=== PATIENT | male | born 1940 | race Caucasian/White ===

== ENCOUNTER 2018-09-27 20:16 | Emergency (ER) | payer MEDICARE ==
[2018-09-27] MEDS ORDERED: Albuterol/Ipratropium NEB.SOL* Albuterol 2.5 MG/Ipratropium 0.5 MG 3 ML INH ONE ×2 (20:22→21:00)
--- NOTE | 2018-09-27 20:39 | UC ---
Shortness of Breath HPI - HPI Summary HPI Summary: C/O SOB with cough since 08/24/18. H/O COPD - History of Current Complaint Stated Complaint: TROUBLE BREATHING Time Seen by Provider: 09/27/18 20:21 Hx Obtained From: Patient Onset/Duration: Sudden Onset, Lasting Days - 4, Worse Since - onset Timing: Constant Current Severity: Severe Dyspnea At: Rest Aggrevating Factors: Movement Alleviating Factors: Nothing Associated Signs & Symptoms: Positive: Cough (Nonproductive), Wheezing, Nasal Congestion. Negative: Fever, Calf Pain/Swelling, Edema - Risk Factors Pulmonary Embolism: Smoking - Allergy/Home Medications Allergies/Adverse Reactions: Allergies Allergy/AdvReac Type Severity Reaction Status Date / Time duloxetine Allergy Intermediate Altered Verified 09/27/18 20:38 Mental Status celecoxib [From Celebrex] Allergy Mild Rash Verified 09/27/18 20:38 Iodine and Iodide Containing Allergy Unknown Unknown Verified 09/27/18 20:38 Produc Reaction Details Home Medications: Home Medications Ibuprofen 200 mg PO 09/27/18 [History] Rivaroxaban TAB(*) [Xarelto 20 mg] 09/27/18 [History] Tizanidine HCl 4 mg PO 09/27/18 [History] PMH/Surg Hx/FS Hx/Imm Hx Respiratory History: COPD - Surgical History Surgical History: Yes Surgery Procedure, Year, and Place: prostate 12 2003 yrs ago,. broken collarbones. RIGHT GREAT TOE, 1987, [facility]. LEFT KNEE FROM SAW INJURY, 1960S. LEFT ROTATOR CUFF REPAIR - Family History Known Family History: Positive: Respiratory Disease - Social History Occupation: Retired Lives: Alone Alcohol Use: None Alcohol Amount: SOBER FOR 9 MONTHS Substance Use Type: None Type: Cigarettes Amount Used/How Often: PACK A DAY Have You Smoked in the Last Year: Yes Cessation Counseling: Patient Advised to Stop Review of Systems All Other Systems Reviewed And Are Negative: Yes Constitutional: Positive: Fatigue ENT: Positive: Nasal Discharge Respiratory: Positive: Shortness Of Breath, Cough Is Patient Immunocompromised?: No Physical Exam Triage Information Reviewed: Yes Appearance: Ill-Appearing - with SOB Vital Signs Reviewed: Yes ENT: Positive: Pharynx normal, TMs normal Respiratory: Positive: Respiratory distress, Accessory muscle use, Wheezing - diffuse inspiratory and expiratory wheezes Cardiovascular: Positive: No Murmur, Distal Pulses Weak - with pulsus paradoxus Musculoskeletal Exam: Normal Neurological Exam: Normal Psychological Exam: Normal Skin Exam: Normal Shortness of Breath Dx - Course Course Of Treatment: Initial O2 sat on RA 74%. Ok on 2l NC. - Differential Dx/Diagnosis Differential Diagnosis/HQI/PQRI: CHF, COPD Exacerbation, Pneumonia Provider Diagnosis: COPD with acute exacerbation - Physician Notification/Consults Discussed Patient Care With: Luis Enrique Merrill - will send to ER via ambulance Time Discussed With Above Provider: 21:04 Instructed by Provider To: Transfer - to [facility] [place] [facility] Discharge - Sign-Out/Discharge Documenting (check all that apply): Patient Departure All imaging exams completed and their final reports reviewed: No Studies - Discharge Plan Condition: Fair Disposition: TRANS HIGHER LVL OF CARE FAC Patient Education Materials: COPD (Chronic Obstructive Pulmonary Disease) (ED) Referrals: Mango Infante MD [Primary Care Provider] - - Billing Disposition and Condition Condition: FAIR Disposition: Trans Higher Lvl of Care Fac
[2018-09-27 21:19] VITALS: BP 104/81
== END 2018-09-27 21:42 | disposition short-term general hospital (02) ==
LOC: UCEAST 20:16
DX: J44.1 Chronic obstructive pulmonary disease with (acute) exacerbation (principal); Z88.8 Allergy status to other drugs, medicaments and biological substances; Z91.09 Other allergy status, other than to drugs and biological substances
CPT/HCPCS: 99214; A9270-GY; G0463

== ENCOUNTER 2018-09-27 22:05 | Emergency (ER) | payer MEDICARE ==
[2018-09-27] MEDS ORDERED: methylPREDNISolone 125 MG* 2 ML VIAL IV ONE (22:09)
[2018-09-27] MEDS ORDERED: Albuterol 0.5% CONC NEB.SOL* 5 MG/ML 20 ml BOT INH ONE (22:09)
[2018-09-27] MEDS ORDERED: Diltiazem IV* 5 MG/ML 5 ML VIAL (for loading dose/IV Push) (25 MG) ONE (22:14)
--- NOTE | 2018-09-27 22:17 | ED ---
Shortness of Breath - HPI Summary HPI Summary: A 77 y/o male brought in by [facility] presents to [facility] with a chief complaint of SOB for the past three days. He has a Hx of COPD. Per EMS, 2 duoneb and adenosine were given en route. At triage he rated his pain as a 0/10 in severity. The patient is a smoker. - History of Current Complaint Chief Complaint: EDShortnessOfBreath Hx Obtained From: EMS Onset/Duration: Sudden Onset, Lasting Days, Still Present Timing: Constant Current Severity: Moderate Dyspnea At: Rest Aggrevating Factors: Nothing Alleviating Factors: Nothing Associated Signs & Symptoms: Negative - fever - Allergy/Home Medications Allergies/Adverse Reactions: Allergies Allergy/AdvReac Type Severity Reaction Status Date / Time duloxetine Allergy Intermediate Altered Verified 09/27/18 20:38 Mental Status celecoxib [From Celebrex] Allergy Mild Rash Verified 09/27/18 20:38 Iodine and Iodide Containing Allergy Unknown Unknown Verified 09/27/18 20:38 Produc Reaction Details Home Medications: Home Medications Amitriptyline TAB* [Elavil TAB*] 1 tab PO QPM 09/27/18 [History Confirmed ] PMH/Surg Hx/FS Hx/Imm Hx Endocrine/Hematology History: Denies: Hx Diabetes Cardiovascular History: Reports: Hx Hypercholesterolemia Denies: Hx Congestive Heart Failure, Hx Hypertension, Hx Pacemaker/ICD, Other Cardiovascular Problems/Disorders Respiratory History: Reports: Hx Asthma GI History: Reports: Other GI Disorders - PANCREATITIS History: Reports: Other Problems/Disorders - prostrate and bladder ca Musculoskeletal History: Reports: Hx Arthritis - OSTEOARTHRITIS, Other Musculoskeletal History - osteoathrosis Sensory History: Reports: Hx Cataracts - DEEPAK, Hx Contacts or Glasses - READING GLASSES Denies: Hx Hearing Aid Opthamlomology History: Reports: Hx Cataracts - DEEPAK, Hx Contacts or Glasses - READING GLASSES Neurological History: Denies: Other Neuro Impairments/Disorders Psychiatric History: Denies: Hx Panic Disorder - Cancer History Cancer Type, Location and Year: PROSTATE CA DX 2003,BLADDER CA 2003 NO RADIATION ,NO CHEMO - Surgical History Surgery Procedure, Year, and Place: prostate 12 2004 yrs ago,. broken collarbones. RIGHT GREAT TOE, 1987, [facility] [place]. LEFT KNEE FROM SAW INJURY, . LEFT ROTATOR CUFF REPAIR Hx Anesthesia Reactions: No Infectious Disease History: No Infectious Disease History: Denies: Traveled Outside the [place] in Last 30 Days - Family History Known Family History: Positive: Respiratory Disease - Social History Alcohol Use: None Alcohol Amount: SOBER FOR 9 MONTHS Substance Use Type: Reports: None Smoking Status (MU): Heavy Every Day Tobacco Smoker Type: Cigarettes Amount Used/How Often: PACK A DAY Length of Time of Smoking/Using Tobacco: py has not smoked for three days Have You Smoked in the Last Year: Yes Review of Systems Negative: Fever Positive: Shortness Of Breath All Other Systems Reviewed And Are Negative: Yes Physical Exam - Summary Physical Exam Summary: Appearance: Elderly male in obvious moderate respiratory distress. Skin: Warm, dry, no obvious rash Eyes: sclera anicteric, no conjunctival pallor ENT: mucous membranes moist, pharynx appears normal Neck: Supple, nontender Respiratory: Markedly diminished aeration, prolonged expiratory phase, tachypnea and belly breathing. Cardiovascular: HR markedly elevated. Normal S1, S2. No murmurs. Normal distal pulses in tibial and radial bilaterally. Abdomen: Soft, nontender, normal active bowel sounds present Musculoskeletal: Normal, Strength/ROM Intact Neurological: A&Ox3, awake and alert, mentation is normal, speech is fluent and appropriate Psychiatric: affect is normal, does not appear anxious or depressed Triage Information Reviewed: Yes Vital Signs On Initial Exam: Initial Vitals Temp Pulse Resp BP Pulse Ox 98.8 F 208 27 0/0 96 09/27/18 22:07 09/27/18 22:07 09/27/18 22:07 09/27/18 22:07 09/27/18 22:07 Vital Signs Reviewed: Yes Diagnostics - Vital Signs Vital Signs Temp Pulse Resp BP Pulse Ox 09/27/18 22:07 98.8 F 208 27 0/0 96 - Laboratory Result Diagrams: 09/27/18 20:14 09/27/18 22:57 Lab Statement: Any lab studies that have been ordered have been reviewed, and results considered in the medical decision making process. - Radiology CXR Radiology Interpretation Completed By: ED Physician Summary of Radiographic Findings: no acute process. Pending official imaging report. - EKG 22:12 Cardiac Rate: Other Rate - Atrial fibrillation at 189 bpm EKG Rhythm: Atrial Fibrillation Summary of EKG Findings: Atrial fibrillation at 189 bpm with rapid v-rate. repolarization abnormality, probably rate related. Re-Evaluation - Re-Evaluation First Eval Change: Improved - The pt's HR is trending lower but is still running around 130 -150. He still has significant wheezing but in terms of work of breathing he is doing well, still alert, not agitated at all, does not appear very labored. He does not need endotracheal intubation at present but will need an ICU bed and we do not have an available bed here. Will begin looking for a hospital to transfer to. Course/Dx - Course Course Of Treatment: A 77 y/o male brought in by [facility] ambulance presents to [facility] with a chief complaint of SOB for the past three days. He has a Hx of COPD. Per EMS, 2 duoneb and adenosine were given en route. The physical exam revealed that the patient was an elderly male in obvious moderate respiratory distress and had markedly diminished aeration, prolonged expiratory phase, tachypnea and belly breathing.Bloodwork and chemistries obtained. Lactic acid of 3.4 and troponin of 0.04 at 20:14. EKG at 22:12 showed Atrial fibrillation at 189 bpm with rapid v-rate. repolarization abnormality, probably rate related. CXR showed no acute process. In the ED course the patient was given Albuterol INH, Diltiazem IV, and Solu-Medrol IV. Because there are no current beds available at the ICU, discussed case with Dr. Antonio at [facility], who accepted the patient for transfer. - Diagnoses Provider Diagnoses: COPD exacerbation, Respiratory distress, Atrial fibrillation with rapid ventricular response Discharge - Sign-Out/Discharge Documenting (check all that apply): Patient Departure - transfer Patient Received Moderate/Deep Sedation with Procedure: No - Discharge Plan Condition: Critical Disposition: TRANS HIGHER LVL OF CARE FAC Referrals: Mango Infante MD [Primary Care Provider] - - Billing Disposition and Condition Condition: CRITICAL Disposition: Trans Higher Lvl of Care Fac - Attestation Statements Document Initiated by Edna: Yes Documenting Scribe: Lincoln Denny Provider For Whom Edna is Documenting (Include Credential): Nikhil Gomes MD Scribana Attestation: Lincoln Brar scribed for Nikhil Gomes MD on 09/28/18 at 0052. Scribe Documentation Reviewed: Yes Provider Attestation: The documentation as recorded by the Lincoln galo accurately reflects the service I personally performed and the decisions made by me, Nikhil Gomes MD Status of Scribe Document: Viewed Consult Consult: At 23:59 Discussed case with transfer center. At 00:[address] Antonio at [facility], who accepted the patient for transfer.
[2018-09-27] MEDS ORDERED: Diltiazem IV* 5 MG/ML 5 ML VIAL (for loading dose/IV Push) (25 MG) IV SLOW PU ONE ×2 (22:20→22:35)
[2018-09-27 22:23] LABS: ABS Basophils 0 10^3/ul (0-0.2); ABS Eosinophils 0 10^3/ul (0-0.6); ABS Lymphocytes 2.4 10^3/ul (1.0-4.8); ABS Monocytes 1.2 10^3/ul (0-0.8); ABS Neutrophils 6.5 10^3/ul (1.5-7.7); ABS Nucleated RBC 0 10^3/ul; Eosinophil % 0.1 %; Hematocrit 46 % (36-46); Hemoglobin 15.7 g/dL (14.0-18.0); Lymphocyte % 23.8 %; Mean Corpuscular HGB Conc 34 g/dL (31-36); Mean Corpuscular Hemoglobin 32 pg (27-31); Mean Corpuscular Volume 94 fL (80-94); Nucleated Red Blood Cells % 0.1; Platelet Count 167 10^3/uL (150-450); Red Blood Count 4.95 10^6 /uL (4.18-5.48); Red Cell Distribution Width 14 % (10.5-15); White Blood Count 10.3 10^3/uL (3.5-10.8)
[2018-09-27] MEDS ORDERED: Diltiazem IV VIAL* 125 MG in NS 0.9% 100 ML* 100 ML IVPB ONE ×2 (22:25→23:14)
[2018-09-27 22:39] LABS: ALT 23 U/L (7-52); Albumin/Globulin Ratio 1.1 (1-3); Alkaline Phosphatase 61 U/L (34-104); BUN/Creatinine Ratio 24.5 (8-20); Blood Urea Nitrogen 35 mg/dL (6-24); CO2 Carbon Dioxide 21 mmol/L (22-32); Calcium 8.8 mg/dL (8.6-10.3); Chloride 105 mmol/L (101-111); Globulin 3.6 g/dL (2-4); Glucose 129 mg/dL (70-100); Sodium 138 mmol/L (135-145); Total Protein 7.6 g/dL (6.4-8.9)
[2018-09-27 22:40] LABS: Anion Gap 12 mmol/L (2-11)
[2018-09-27 23:02] LABS: Troponin I 0.04 ng/mL (<0.04)
[2018-09-27 23:18] LABS: Potassium Redraw 3.6 mmol/L (3.5-5.0)
[2018-09-28 01:00] VITALS: BP 98/73
[2018-09-28] MEDS ORDERED: Albuterol 2.5 MG/3 ML NEB.SOL* (0.083%) INH ONE ×2 (01:19→01:21)
== END 2018-09-28 01:40 | disposition short-term general hospital (02) ==
LOC: ED 22:05
DX: J44.9 Chronic obstructive pulmonary disease, unspecified (principal); R06.02 Shortness of breath; I48.91 Unspecified atrial fibrillation; Z88.8 Allergy status to other drugs, medicaments and biological substances; F17.210 Nicotine dependence, cigarettes, uncomplicated
CPT/HCPCS: 36415; 71045; 80053; 83605; 84484; 85025; 87040; 93005; 96365; 96375; 99285; J2930

== ENCOUNTER 2018-10-15 13:14 | Inpatient (IN) | payer MEDICARE ==
--- OUTSIDE RECORDS SUMMARY | 2018-10-15 13:36 | XMS REPORT | Continuity of Care Document ---
:1940 External Reference #:[id number] Author Name LiliaStefano appleidi Care Team Providers Name Role Phone Erma Darnell MD Primary Care Physician Unavailable Payers Date Identification Numbers Payment Provider Subscriber Effective: 2012 Policy Number: [id number] Medicare Blue Ppo [employer] PayID: [id number] [address] [address] [place] [address] Expires: 2012 Policy Number: [id number] Medicare Blue Ppo [employer] PayID: [id number] [address] [address] [place] [address] Effective: 2000 Policy Number: [id number] Medicare Kvng Casillas Expires: 2000 PayID: [id number] [address] [place] [address] Advance Directives Description No Information Available Problems Active Problems Provider Date Paroxysmal atrial fibrillation Mango Infante M.D.,FACP Onset: 11/12/2017 Chronic alcoholism in remission Mango Infante M.D.,FACP Onset: 2006 Chronic obstructive lung disease Mango Infante M.D.,FACP Onset: 2006 Osteoarthritis Mango Infante M.D.,FACP Onset: 05/27/2007 Tobacco user Mango Infante M.D.,FACP Onset: 05/27/2007 Mixed hyperlipidemia Mango Infante M.D.,FACP Onset: 07/09/2007 Recurrent major depressive episodes Mango Infante M.D.,FACP Onset: 07/09 History of malignant neoplasm of Mango Infante M.D.,FACP Onset: 2011 prostate Diagnostic dye allergy Mango Infante M.D.,FACP Onset: 01/29/2013 Chronic pancreatitis Montserrat Azul, N.P. Onset: 07/10/2013 Anemia Mango Infante M.D.,FACP Onset: 06/26/2018 Inactive Problems Malaise and fatigue Mango Infante M.D.,FACP Onset: 04/21/2009 Inactive: 12/02/2013 Nondependent alcohol abuse, continuous Mango Infante M.D.,FACP Onset: Inactive: 12/02/2013 Multiple atrial premature complexes Mango Infante M.D.,FACP Onset: 12/02 Inactive: 11/12/2017 Family History Date Family Member(s) Observation Comments General Cancer General Rheumatoid Arthritis : (age 89 Years) Mother due to Unknown Causes Siblings 2 none now First Sister Cancer, Colon First Sister due to Cancer, Colon () Second Sister Chronic pain. Second Sister Brain Cancer Social History Type Date Description Comments Sex Unknown Marital Status Lives With Alone Occupation Disabled Tobacco Use Start: Unknown Current Cigarette Smoker 1 Pack Daily ETOH Use 02/18/2018 Has consumed alcohol in the past abuse ETOH Use 02/01/2014 Denies alcohol use Recreational Drug Use Denies Drug Use Tobacco Use Start: Unknown Patient is a current smoker, smokes every day Tobacco Use Start: Unknown 1 ppd x 60 yrs Smoking Status Reviewed: 10/14/18 1 ppd x 60 yrs Exercise Type/Frequency Does not exercise Allergies, Adverse Reactions, Alerts Active Allergies Reaction Severity Comments Date Celebrex rash 05/27/2007 Cymbalta delirium 01/13/2010 Iodinated Contrast Media per [facility] 01/17/2010 Sulfa Antibiotics 11/26/2013 Iodine 11/26/2013 Medications Active Medications SIG Qnty Indications Ordering Date Provider Omeprazole 1 by mouth once 30caps K62.5 Juan David Barragan NP 10/14/2018 20mg daily Capsules Amitriptyline HCL 1 by mouth in 90tabs Mango Ferreira 02/18/2018 evening Nicole Infante,FACP 10mg Tablets Shingrix 0.5 milliliters 2units Mango Ferreira 02/18/2018 50mcg intramuscular now Nicole Infante,FACP Suspension Rec and 2-3 months later repeat Xarelto 1 by mouth every day 90tabs I48.91 Mango Ferreira 10/15/2017 20mg Tablets Nicole Infante,FACP Nicotine Step 1 Unknown 21mg/24HR Patches 24HR Diltiazem HCL 1 by mouth twice a Unknown 60mg day Tablets Metoprolol Tartrate daily - on hold as Unknown of 10/09/18 25mg Tablets Digox Unknown 125mcg Tablets Ipratropium Unknown Ulysses/Albuterol Sulfate 0.5-2.5(3)mg/3ML Solution History Medications Tizanidine HCL 1 tab every day 20caps Mango Ferreira 11/12/2017 - 4mg as needed Nicole Infante,FACP 02/18/2018 Capsules Amitriptyline HCL 1 by mouth in 30tabs Mango Ferreira 10/15/2017 - 10mg evening Nicole Infante,FACP 02/18/2018 Tablets Diltiazem HCL ER 1 po qd 90caps Mango Ferreira 10/15/2017 - 120mg Nicole Infante,FACP 02/18/2018 Caps ER 12HR Fluticasone 2 sprays each 16gm Dejon Robledo NP 08/10/2015 - Propionate nostril daily as 10/05/2015 50mcg/Act needed Suspension No Active Medications Unknown 12/17/2013 - 02/01/2014 No Active Medications Unknown 11/26/2013 - 11/26/2013 Percocet take 1-2 pills 90tabs Keyana Ba, 11/26/2013 - 5-325mg every 4-6 hours Nicole 12/16/2013 Tablets as needed pain Meloxicam 1 po bid 14tabs 726.19 Mango Ferreira 08/24/2013 - 7.5mg Tablets Nicole Infante,FACP 11/25/2013 Cholestyramine Light 1 po qd 30units Mango Ferreira 08/24/2013 - Nicole Infante,FACP 11/25/2013 4gm Packet Cholestyramine Light 1 po qd 30units Mango Ferreira 03/31/2013 - Nicole Infante,FACP 08/24/2013 4gm Packet Creon po qac qid 120caps Mango Ferreira 02/25/2013 - [id number] Caps DR meals/snacks Nicole Infante,FACP 08/24/2013 Part Oxycodone HCL 1 po q4prn 30tabs Mango Ferreira 02/13/2013 - 5mg Nicole Infante,FACP 02/13/2013 Tablets Oxycontin 1 po bid 10tabs Mango Ferreira 02/13/2013 - 10mg Tablets Nicole Infante,FACP 02/13/2013 ER 12HR Oxycontin 1 po bid 10tabs Mango Ferreira 02/13/2013 - 10mg Tablets Nicole Infante,FACP 02/13/2013 ER 12HR Oxycodone HCL 1 po q4prn 30tabs Mango Ferreira 02/13/2013 - 5mg Nicole Infante,FACP 02/13/2013 Tablets Oxycodone HCL 1 po q4 prn 90tabs Mango Ferreira 02/13/2013 - 5mg Nicole Infante,FACP 11/25/2013 Tablets Colace 1 po bid 60caps Mango Ferreira 02/13/2013 - 100mg Capsules Nicole Infante,FACP 08/24/2013 Oxycontin 1 po bid 60tabs Mango Ferreira 02/13/2013 - 10mg Tablets Nicole Infante,FACP 11/25/2013 ER 12HR Cholestyramine Light 1 po qd 30units 787.91 Mango Ferreira 02/03/2013 - Nicole Infante,FACP 02/27/2013 4gm Packet Prednisone 1 po 13 hrs 3tabs V15.08 Mango Ferreira 01/29/2013 - 50mg Tablets before ct Nicole Infante,FACP 02/03/2013 contrast, then 1 po [address] contrast, then 1 po [address] contrast Benadryl 2 tabs q6h with 30tabs V15.08 Mango Ferreira 01/29/2013 - 25mg Tablets prednisone then Nicole Infante,[facility] 08/24/2013 prn No Active Medications Unknown 11/27/2012 - 01/29/2013 Doxycycline Hyclate 100 mg orally 42tabs Mango Ferreira 11/26/2011 - twice daily x 21 Nicole Infante,[facility] 12/17/2011 100mg Tablets days; Cephalexin 1 po tid x 10 30caps 682.2 Mango Ferreira 11/20/2011 - 500mg days Nicole Infante,[facility] 12/07/2011 Capsules Triamcinolone apply qd prn 30g Mango Ferreira 10/30/2011 - Acetonide Nicole Infante,[facility] 11/27/2012 0.1% Cream Econazole Nitrate topical bid max 4 30g 110.4 Mango Ferreira 10/30/2011 - 1% weeks Nicole Infante,[facility] 11/27/2012 Cream Clotrimazole/Betameth apply sparingly 15gm 110.4 Mango Ferreira 10/30/2011 - asone Dipropionate bid x 2 weeks Nicole Infante,[facility] 10/30/2011 1-0.05% Cream Mentax bid for 2 wks to 60g 110.4 Mango Ferreira 09/24/2011 - 1% Cream affected areas on Nicole Infante,[facility] 10/30/2011 ankles Cephalexin 1 tab 4 times a 40tabs 706.2 Mango Ferreira 07/12/2011 - 500mg day x 10 days Nicole Infante,[facility] 09/24/2011 Tablets Bupropion HCL 1 po qam, 1 at 60tabs 311 Mango Ferreira 11/22/2010 - 100mg noon Nicole Infante,[facility] 11/22/2010 Tablets ER 12HR Sertraline HCL take 1 tablet by 30tabs 311 Mango Ferreira 11/22/2010 - 50mg mouth once daily Nicole Infante,[facility] 10/30/2011 Tabs Bupropion HCL SR 1 po qam, 1 at 60tabs 311 Mango Ferreira 11/22/2010 - 100mg noon Nicole Infante,[facility] 10/30/2011 Tablets ER 12HR Potassium Chloride ER take 1 tablet by 30units Mango Ferreira 02/17/2010 - mouth once daily Nicole Infante,[facility] 11/22/2010 20Meq TBCR Sertraline HCL Take 1 Tablet By 30tabs Mango Ferreira 01/24/2010 - 50mg Mouth Once Daily Nicole Infante,[facility] 11/22/2010 Tabs Dicloxacillin Sodium 1 qid po for 10 40caps Mango Ferreira 01/23/2010 - days Nicole Infante,[facility] 02/09/2010 500mg Capsules Levaquin 1 po qd x 7 days 7tabs Mango Ferreira 01/16/2010 - 500mg Tablets Nicole Infante,[facility] 01/23/2010 Lexapro 1 po every day 30tabs 296.32 Mango Ferreira 01/13/2010 - 10mg Tablets Nicole Infante,[facility] 01/23/2010 Vitamin B-12 1 po qd 281.1 Mango Ferreira 01/13/2010 - 500mcg Nicole Infante,[facility] 11/22/2010 Tablets Cymbalta 1 po qam 30caps 296.32 Mango Ferreira 12/30/2009 - 30mg Caps DR Arelis M.D.,[facility] 01/13/2010 Part Ibuprofen take 1 tablet by 270tabs Mango Ferreira 12/14/2009 - 600mg Tabs mouth three times Nicole Infante,[facility] 10/30/2011 a day if needed Sertraline HCL take 1 tablet by 30tabs 296.32 Mango Ferreira 10/18/2009 - 50mg mouth once daily Nicole Infante,[facility] 12/30/2009 Tabs Bupropion HCL 1 po qam, 1 at 60tabs Mango Ferreira 04/21/2009 - 100mg noon Nicole Infante,[facility] 11/22/2010 Tablets ER 12HR Potassium Chloride CR 1 po qd 30tabs Mango Ferreira 10/27/2008 - [facility]ante,[facility] 02/17/2010 20Meq Tablets ER Mag-Ox 400 qd po 30tabs Mango Ferreira 10/27/2008 - 400mg Nicole Infante,[facility] 11/22/2010 Tablets Leila qam PO Mango Ferreira 07/09/2007 - 20mg Caps ER Nicole [facility]ante,[facility] 11/27/2012 24HR Aspirin 1 PO qd Mango Ferreira 07/09/2007 - 325mg Tablets Nicole [facility]ante,[facility] 11/22/2010 Bupropion HCL 2 qam 30tabs Mango Ferreira 07/09/2007 - 100mg Nicole Infante,[facility] 04/21/2009 Tablets Zoloft 1 po qd 30tabs 296.30 Mango Ferreira 07/09/2007 - 50mg Tablets Nicole Infante,[facility] 10/18/2009 Omeprazole take 1 capsule by 90unesha Ferreira 07/09/2007 - 20mg CPDR mouth twice a day Nicole Infante,[facility] 11/22/2010 Motrin tid prn 270tabs Mango Ferreira 06/30/2007 - 600mg Tablets Nicole Infante,[facility] 12/14/2009 Bupropion HCL One Tab bid 60tabs Mango Ferreira 05/27/2007 - 100mg Nicole Infante,[facility] 07/09/2007 Tablets Campral 3 tabs bid 180tabs 303.93 Manog Ferreira 05/27/2007 - 333mg Tablets Nicole Infante,[facility] 04/15/2008 DR Propranolol HCL ER Take 1 Capsule By 30unesha Ferreira 05/27/2007 - 60mg Mouth Every Nicole Infante,[facility] 10/30/2011 CP24 Morning Simvastatin Take 1/2 Tablet 15tabs Mango Ferreira 05/27/2007 - 40mg Tabs By Mouth AT Nicole Infante,[facility] 11/22/2010 Bedtime Tramadol HCL 1 tablet PO qid 120tabs Mango Ferreira - 50mg prn Nicole Infante,FACP 01/13/2010 Tablets Ibuprofen as needed Unknown - 200mg 10/07/2018 Capsules Prednisone last tapering Unknown - 10mg Tablets dose 10/14/18 10/14/2018 Shingrix no bill Unknown inj-pt brought in Injection Medications Administered in Office Medication SIG Qnty Indications Ordering Provider Date Shingrix no bill inj-pt brought Unknown 07/17/2018 in Injection Depomedrol 40MG ISMAEL Lockhart 07/09/2018 Injection Immunizations CPT Code Status Date Vaccine Lot # 22070 Given 02/21/2018 Fluzone High Dose 99854 Given 02/09/2017 Influenza Virus Vaccine, Quadrivalent, Split, Preservative Free 15952 Given 03/28/2016 Influ Virus Vaccine, Quadrivalent, Split Virus, [place] [id number] [place] [address] Given 06/19/2015 Flu Vaccine Split Virus Preservative Free For Indiv 3Yr Older 52054 Given 06/25/2014 Pneumococcal Conjugate Vaccine 13 Valent For [id number] Intramuscular Use 02568 Given 05/18/2014 Flu Vaccine Split Virus Preservative Free For [id number] Indiv 3Yr Older 52723 Given 03/16/2013 Flu Vaccine Split Virus Preservative Free For [id number] Indiv 3Yr Older Q2037 Given 04/25/2012 Fluvirin Im 3Yrs And Older Q2037 Given 04/25/2012 Fluvirin Im 3Yrs And Older [id number] 62458 Given 09/24/2011 Tdap - Tetanus/Diptheria/Acellular Pertussis [id number] 07490 Given 08/10/2009 Administration Swine Flu Shot 23793 Given 08/10/2009 Influenza Virus 3Yrs & Over [id number] 20700 Given 08/10/2009 Influenza Virus 3Yrs & Over 02213 Given 08/10/2009 Influenza Virus Vaccine, Pandemic Formulation [id number] 98895 Given 08/10/2009 Influenza Virus Vaccine, Pandemic Formulation 16367 Given 04/15/2008 Influenza Virus 3Yrs & Over 44079 07153 Given 05/01/2007 Influenza Virus 3Yrs & Over 77426 Given 05/01/2007 Influenza Virus 3Yrs & Over 86148 Given 05/01/2007 Influenza Virus 3Yrs & Over [id number] 32634 Given 04/25/2006 Pneumovax (History By Patient) Vital Signs Date Vital Result Comment 10/14/2018 11:15am Height 70 inches 5'10" Weight 163.12 lb Heart Rate 75 /min BP Systolic 84 mmHg BP Diastolic 55 mmHg BP Systolic Recheck 90 mmHg BP Diastolic Recheck 62 mmHg Body Temperature 97.9 F O2 % BldC Oximetry 93 % BMI (Body Mass Index) 23.4 kg/m2 08/06/2018 3:40pm Height 70 inches 5'10" Heart Rate 60 /min BP Systolic 138 mmHg BP Diastolic 78 mmHg Body Temperature 97.0 F Pain Level 0 07/09/2018 1:27pm Height 70 inches 5'10" Weight 171.00 lb Heart Rate 60 /min BP Systolic 98 mmHg BP Diastolic 60 mmHg BMI (Body Mass Index) 24.5 kg/m2 06/26/2018 1:38pm Height 68.75 inches 5'8.75" Weight 163.00 lb Heart Rate 86 /min BP Systolic Sitting 110 mmHg Lue BP Diastolic Sitting 60 mmHg Lue Respiratory Rate 16 /min Body Temperature 97.1 F tympanic Pain Level 8 BMI (Body Mass Index) 24.2 kg/m2 02/18/2018 4:40pm Height 68.75 inches 5'8.75" Weight 161.00 lb Heart Rate 61 /min BP Systolic Sitting 102 mmHg BP Diastolic Sitting 56 mmHg Body Temperature 98.8 F O2 % BldC Oximetry 96 % BMI (Body Mass Index) 23.9 kg/m2 11/12/2017 2:27pm Weight 169.00 lb Heart Rate 74 /min BP Systolic Sitting 114 mmHg BP Diastolic Sitting 68 mmHg Body Temperature 97.1 F O2 % BldC Oximetry 94 % 10/15/2017 3:36pm Weight 170.00 lb Heart Rate 91 /min BP Systolic Sitting 110 mmHg BP Diastolic Sitting 64 mmHg Body Temperature 99.0 F O2 % BldC Oximetry 98 % 10/05/2015 2:58pm Height 68.5 inches 5'8.50" Weight 166.00 lb Heart Rate 76 /min BP Systolic Sitting 120 mmHg BP Diastolic Sitting 74 mmHg Body Temperature 98.2 F O2 % BldC Oximetry 98 % BMI (Body Mass Index) 24.9 kg/m2 07/26/2015 11:44am Weight 169.00 lb Heart Rate 69 /min BP Systolic Sitting 112 mmHg BP Diastolic Sitting 72 mmHg O2 % BldC Oximetry 98 % 06/25/2014 2:10pm Height 69 inches 5'9" Weight 170.50 lb Heart Rate 98 /min BP Systolic Sitting 114 mmHg BP Diastolic Sitting 70 mmHg Body Temperature 97.8 F BMI (Body Mass Index) 25.2 kg/m2 04/08/2014 3:05pm Height 69 inches 5'9" Weight 165.00 lb Body Temperature 98.5 F BMI (Body Mass Index) 24.4 kg/m2 02/25/2014 3:05pm Height 69 inches 5'9" Weight 165.00 lb Pain Level 0 BMI (Body Mass Index) 24.4 kg/m2 02/01/2014 3:49pm Weight 165.00 lb Heart Rate 84 /min BP Systolic Sitting 110 mmHg BP Diastolic Sitting 60 mmHg Body Temperature 98.6 F 01/14/2014 1:03pm Height 69 inches 5'9" Heart Rate 65 /min BP Systolic 117 mmHg BP Diastolic 73 mmHg 12/17/2013 10:09am Height 69 inches 5'9" Heart Rate 74 /min BP Systolic 112 mmHg BP Diastolic 72 mmHg Body Temperature 97.6 F 11/26/2013 1:46pm Height 69 inches 5'9" Weight 155.00 lb Heart Rate 62 /min BP Systolic 121 mmHg BP Diastolic 81 mmHg BMI (Body Mass Index) 22.9 kg/m2 08/24/2013 4:18pm Weight 150.00 lb Heart Rate 64 /min BP Systolic Sitting 104 mmHg BP Diastolic Sitting 70 mmHg O2 % BldC Oximetry 93 % 07/10/2013 4:07pm Weight 147.00 lb Heart Rate 74 /min BP Systolic Sitting 112 mmHg BP Diastolic Sitting 80 mmHg O2 % BldC Oximetry 96 % 02/27/2013 2:38pm Height 69 inches 5'9" Weight 148.00 lb Heart Rate 68 /min BP Systolic Sitting 98 mmHg BP Diastolic Sitting 62 mmHg BMI (Body Mass Index) 21.9 kg/m2 02/03/2013 11:26am Weight 157.75 lb Heart Rate 62 /min BP Systolic Sitting 104 mmHg BP Diastolic Sitting 64 mmHg 01/29/2013 2:11pm Height 69.5 inches 5'9.50" Weight 158.50 lb Heart Rate 56 /min irregular BP Systolic Sitting 108 mmHg BP Diastolic Sitting 58 mmHg Body Temperature 98.4 F O2 % BldC Oximetry 96 % BMI (Body Mass Index) 23.1 kg/m2 11/27/2012 2:00pm Height 69.25 inches 5'9.25" Weight 167.00 lb Heart Rate 72 /min BP Systolic Sitting 122 mmHg BP Diastolic Sitting 78 mmHg BMI (Body Mass Index) 24.5 kg/m2 12/07/2011 2:18pm Height 69.25 inches 5'9.25" Weight 164.00 lb Heart Rate 94 /min BP Systolic Sitting 118 mmHg BP Diastolic Sitting 70 mmHg Respiratory Rate 22 /min Body Temperature 99.6 F lt ear BMI (Body Mass Index) 24.0 kg/m2 11/20/2011 2:15pm Height 69.25 inches 5'9.25" Weight 165.75 lb Heart Rate 84 /min BP Systolic Sitting 124 mmHg BP Diastolic Sitting 94 mmHg BMI (Body Mass Index) 24.3 kg/m2 10/30/2011 1:53pm Weight 168.00 lb Heart Rate 64 /min BP Systolic Sitting 122 mmHg BP Diastolic Sitting 78 mmHg Body Temperature 98.8 F 09/24/2011 11:07am Weight 163.00 lb Heart Rate 90 /min BP Systolic Sitting 126 mmHg BP Diastolic Sitting 80 mmHg Body Temperature 99.1 F Tympanically 07/12/2011 1:14pm Weight 159.00 lb Heart Rate 86 /min BP Systolic Sitting 124 mmHg BP Diastolic Sitting 74 mmHg Body Temperature 99.1 F Tympanically 01/22/2011 3:19pm Weight 161.00 lb Heart Rate 98 /min BP Systolic Sitting 136 mmHg BP Diastolic Sitting 90 mmHg 11/22/2010 1:37pm Weight 166.00 lb Heart Rate 80 /min BP Systolic Sitting 130 mmHg BP Diastolic Sitting 90 mmHg 02/09/2010 11:59am Weight 152.00 lb Heart Rate 70 /min BP Systolic Sitting 90 mmHg BP Diastolic Sitting 60 mmHg 01/27/2010 2:39pm Weight 148.00 lb Heart Rate 75 /min BP Systolic Sitting 92 mmHg BP Diastolic Sitting 68 mmHg 01/13/2010 2:49pm Height 69.7 inches 5'9.70" Weight 148.00 lb Heart Rate 80 /min BP Systolic Sitting 110 mmHg BP Diastolic Sitting 70 mmHg BMI (Body Mass Index) 21.4 kg/m2 12/30/2009 10:51am Height 69.7 inches 5'9.70" Weight 147.00 lb Heart Rate 69 /min O2 % BldC Oximetry 97 % BMI (Body Mass Index) 21.3 kg/m2 04/21/2009 1:40pm Height 69.7 inches 5'9.70" Weight 167.50 lb Heart Rate 69 /min BP Systolic Sitting 117 mmHg BP Diastolic Sitting 77 mmHg Body Temperature 97.9 F BMI (Body Mass Index) 24.2 kg/m2 10/20/2008 11:48am Height 69.7 inches 5'9.70" Weight 168.00 lb Heart Rate 68 /min BP Systolic Sitting 104 mmHg BP Diastolic Sitting 86 mmHg BMI (Body Mass Index) 24.3 kg/m2 04/15/2008 3:05pm Height 69.7 inches 5'9.70" Weight 174.00 lb Heart Rate 60 /min BP Systolic Sitting 140 mmHg BP Diastolic Sitting 80 mmHg BMI (Body Mass Index) 25.2 kg/m2 07/09/2007 1:17pm Height 69.7 inches 5'9.70" Weight 170.00 lb Heart Rate 74 /min BP Systolic Sitting 102 mmHg BP Diastolic Sitting 60 mmHg BMI (Body Mass Index) 24.6 kg/m2 05/27/2007 10:56am Height 69.7 inches 5'9.70" Weight 162.00 lb Heart Rate 74 /min BP Systolic Sitting 110 mmHg BP Diastolic Sitting 76 mmHg BMI (Body Mass Index) 23.4 kg/m2 Results Test Date Facility Test Result H/L Range Note Laboratory test 10/14/2018 [facility] B-Type <pending> finding [address] [place] [address] Peptide BNP [phone] CBC Auto Diff 09/27/2018 [facility] White Blood 10.3 N 3.5- 10.[address] Count 10^3/[place] [address] [phone] Red Blood Count 4.95 10^6/uL N 4.18-5.48 Hemoglobin 15.7 g/dL N 14.0-18.0 Hematocrit 46 % N 36-46 Mean Corpuscular Volume 94 fL N 80-94 Mean Corpuscular Hemoglobin 32 pg High 27-31 Mean Corpuscular HGB Conc 34 g/dL N 31-36 Red Cell Distribution Width 14 % N 10.5-15 Platelet Count 167 10^3/uL N 150-450 Mean Platelet Volume 8.0 fL N 7.4-10.4 Abs Neutrophils 6.5 10^3/uL N 1.5-7.7 Abs Lymphocytes 2.4 10^3/uL N 1.0-4.8 Abs Monocytes 1.2 10^3/uL High 0-0.8 Abs Eosinophils 0 10^3/uL N 0-0.6 Abs Basophils 0 10^3/uL N 0-0.2 Abs Nucleated RBC 0 10^3/uL Granulocyte % 63.6 % Lymphocyte % 23.8 % Monocyte % 12.1 % Eosinophil % 0.1 % Basophil % 0.4 % Nucleated Red Blood Cells % 0.1 Laboratory test 09/27/2018 [facility] Lactic Acid 3.4 mmol/L High 0.5-2.0 [address] [place] [address] [phone] Comp Metabolic 09/27/2018 [facility] Sodium 138 mmol/L N 135- [address] [place] [address] [phone] Chloride 105 mmol/L N 101-111 Co2 Carbon Dioxide 21 mmol/L Low 22-32 Glucose 129 mg/dL High 70-100 Blood Urea Nitrogen 35 mg/dL High 6-24 Creatinine 1.43 mg/dL High 0.67-1.17 BUN/Creatinine Ratio 24.5 High 8-20 Calcium 8.8 mg/dL N 8.6-10.3 Total Protein 7.6 g/dL N 6.4-8.9 Albumin 4.0 g/dL N 3.2-5.2 Globulin 3.6 g/dL N 2-4 Albumin/Globulin Ratio 1.1 N 1-3 Total Bilirubin 0.90 mg/dL N 0.2-1.0 Alkaline Phosphatase 61 U/L N 34-104 Alt 23 U/L N 7-52 Egfr Non- 48.0 >60 Egfr 58.0 >60 2 Potassium TNP mmol/L 3.5-5.0 3 Anion Gap 12 mmol/L High 2-11 Ast TNP U/L 13-39 4 Laboratory test 09/27/2018 [facility] Troponin-I 0.04 ng/mL High <0.04 [address] (TnI) [place] [address] [phone] Blood Culture SEE RESULT BELOW 6 Laboratory 10/22/2017 [facility] TSH (Thyroid Stim 2.01 N 0.34 -5.60 7 test finding [address] Horm) mcIU/[place] [address] [phone] Lipid Profile 10/22/2017 [facility] Triglycerides 172 mg/dL 8 (Trig/Chol/HDL [address] ) [place] [address] [phone] Cholesterol 194 mg/dL 9 HDL Cholesterol 33.6 mg/dL 10 LDL Cholesterol 126 mg/dL 11 Comp Metabolic Panel 10/22/2017 [facility] Sodium 140 mmol/L N 139-[address] [place] [address] [phone] Potassium 4.1 mmol/L N 3.5-5.0 Chloride 110 mmol/L N 101-111 Co2 Carbon Dioxide 21 mmol/L Low 22-32 Anion Gap 9 mmol/L N 2-11 Glucose 107 mg/dL High 70-100 Blood Urea Nitrogen 25 mg/dL High 6-24 Creatinine 1.12 mg/dL N 0.67-1.17 BUN/Creatinine Ratio 22.3 High 8-20 Calcium 9.2 mg/dL N 8.6-10.3 Total Protein 7.1 g/dL N 6.4-8.9 Albumin 4.1 g/dL N 3.2-5.2 Globulin 3.0 g/dL N 2-4 Albumin/Globulin Ratio 1.4 N 1-3 Total Bilirubin 0.50 mg/dL N 0.2-1.0 Alkaline Phosphatase 76 U/L N 34-104 Alt 14 U/L N 7-52 Ast 18 U/L N 13-39 Egfr Non- 63.7 >60 Egfr 82.0 >60 12 CBC Auto Diff 10/22/2017 [facility] White Blood 8.7 10^3/uL N 3.5-10.[address] [place] [address] [phone] Red Blood Count 4.44 10^6/uL N 4.0-5.4 Hemoglobin 14.0 g/dL N 14.0-18.0 Hematocrit 41 % Low 42-52 Mean Corpuscular Volume 93 fL N 80-94 Mean Corpuscular Hemoglobin 32 pg High 27-31 Mean Corpuscular HGB Conc 34 g/dL N 31-36 Red Cell Distribution Width 13 % N 10.5-15 Platelet Count 250 10^3/uL N 150-450 Mean Platelet Volume 8.0 um3 N 7.4-10.4 Abs Neutrophils 5.9 10^3/uL N 1.5-7.7 Abs Lymphocytes 2.1 10^3/uL N 1.0-4.8 Abs Monocytes 0.6 10^3/uL N 0-0.8 Abs Eosinophils 0.1 10^3/uL N 0-0.6 Abs Basophils 0.1 10^3/uL N 0-0.2 Abs Nucleated RBC 0 10^3/uL Granulocyte % 67.2 % N 38-83 Lymphocyte % 23.6 % Low 25-47 Monocyte % 7.0 % N 0-7 Eosinophil % 1.6 % N 0-6 Basophil % 0.6 % N 0-2 Nucleated Red Blood Cells % 0 Lipid Profile 10/14/2015 [facility] Triglycerides 137 mg/dL N 13 (Trig/Chol/HDL) [address] [place] [address] [phone] Cholesterol 199 mg/dL N 14 HDL Cholesterol 37.3 mg/dL N 15 LDL Cholesterol 134 mg/dL N 16 CBC Auto Diff 07/26/2015 [facility] White Blood 7.2 10^3/uL N 3.5-10.[address] [place] [address] [phone] Red Blood Count 4.25 10^6/uL N 4.0-5.4 Hemoglobin 13.4 g/dL Low 14.0-18.0 Hematocrit 40 % Low 42-52 Mean Corpuscular Volume 94 fL N 80-94 Mean Corpuscular Hemoglobin 32 pg High 27-31 Mean Corpuscular HGB Conc 34 g/dL N 31-36 Red Cell Distribution Width 13 % N 10.5-15 Platelet Count 211 10^3/uL N 150-450 Mean Platelet Volume 8 um3 N 7.4-10.4 Abs Neutrophils 4.5 10^3/uL N 1.5-7.7 Abs Lymphocytes 1.8 10^3/uL N 1.0-4.8 Abs Monocytes 0.8 10^3/uL N 0-0.8 Abs Eosinophils 0.1 10^3/uL N 0-0.6 Abs Basophils 0.1 10^3/uL N 0-0.2 Abs Nucleated RBC 0.01 10^3/uL N Granulocyte % 61.9 % N 38-83 Lymphocyte % 24.7 % Low 25-47 Monocyte % 10.8 % High 1-9 Eosinophil % 1.7 % N 0-6 Basophil % 0.9 % N 0-2 Nucleated Red Blood Cells % 0.1 N Laboratory test 07/26/2015 [facility] Erythrocyte Sed 26 mm/Hr N 0-[address] [place] [address] [phone] Laboratory test 07/13/2015 [facility] PSA Diagnostic 0.010 N 0 -4.[address] ng/[place] [address] [phone] Basic Metabolic 07/13/2015 [facility] Sodium 139 mmol/L N 133- [address] [place] [address] [phone] Potassium 3.8 mmol/L N 3.5-5.0 Chloride 106 mmol/L N 101-111 Co2 Carbon Dioxide 26 mmol/L N 22-32 Anion Gap 7 mmol/L N 2-11 Glucose 100 mg/dL N 70-100 Blood Urea Nitrogen 27 mg/dL High 6-24 Creatinine 1.10 mg/dL N 0.67-1.17 BUN/Creatinine Ratio 24.5 High 8-20 Calcium 9.2 mg/dL N 8.6-10.3 Egfr Non- 65.4 N >60 Egfr 84.2 N >60 18 Laboratory test 06/25/2014 [facility] Lipase < 3 U/L Low 11.0- 82.[address] [place] [address] [phone] Comp Metabolic 06/25/2014 [facility] Sodium 140 mmol/L N 133- [address] [place] [address] [phone] Potassium 4.0 mmol/L N 3.5-5.0 Chloride 106 mmol/L N 101-111 Co2 Carbon Dioxide 28 mmol/L N 22-32 Anion Gap 6 mmol/L N 2-11 Glucose 123 mg/dL High 70-100 Blood Urea Nitrogen 24 mg/dL N 6-24 Creatinine 1.34 mg/dL High 0.67-1.17 BUN/Creatinine Ratio 17.9 N 8-20 Calcium 9.4 mg/dL N 8.6-10.3 Total Protein 7.3 g/dL N 6.4-8.9 Albumin 4.3 g/dL N 3.2-5.2 Globulin 3.0 g/dL N 2-4 Albumin/Globulin Ratio 1.4 N 1-3 Total Bilirubin 0.60 mg/dL N 0.2-1.0 Alkaline Phosphatase 71 U/L N 34-104 Alt 17 U/L N 7-52 Ast 18 U/L N 13-39 Egfr Non- 52.3 N >60 Egfr 67.2 N >60 19 Laboratory test 06/25/2014 [facility] PSA Diagnostic 0.012 N 0 -4.0 [address] ng/[place] [address] [phone] CBC With Manual 01/08/2014 [facility] White Blood 7.5 N 4.8- 10.8 [address] Count 10^3/[place] [address] [phone] Red Blood Count 4.24 10^6/uL N 4.0-5.4 Hemoglobin 13.9 g/dL Low 14.0-18.0 Hematocrit 40 % Low 42-52 Mean Corpuscular Volume 94 fL N 80-94 Mean Corpuscular Hemoglobin 33 pg High 27-31 Mean Corpuscular HGB Conc 35 g/dL N 31-36 Red Cell Distribution Width 14 % N 10.5-15 Platelet Count 171 10^3/uL N 150-450 Mean Platelet Volume 8 um3 N 7.4-10.4 Abs Neutrophils 4.6 10^3/uL N 1.5-7.7 Abs Lymphocytes 2.0 10^3/uL N 1.0-4.8 Abs Monocytes 0.7 10^3/uL N 0-0.8 Abs Eosinophils 0.2 10^3/uL N 0-0.6 Abs Basophils 0.1 10^3/uL N 0-0.2 Abs Nucleated RBC 0.01 10^3/uL N Neutrophil % 55 % N 38-83 Lymphocytes % 25 % N 25-47 Monocytes % 11 % N 0-13 Eosinophils % 4 % N 0-6 Basophil % 2 % N 0-2 Reactive Lymph % 3 % N 0-6 RBC Morphology Normal N Normal Lipid Profile 01/08/2014 [facility] Triglycerides 125 mg/dL N 22 (Trig/Chol/HDL) [address] [place] [address] [phone] Cholesterol 211 mg/dL N 23 HDL Cholesterol 45.4 mg/dL N 24 LDL Cholesterol 141 mg/dL N 25 Surgical 12/04/2013 [facility] S RUN DATE: Pathology [address] 12/15/ <[place] [address] NOTE> [phone] CBC Auto Diff 02/13/2013 [facility] White Blood 9.2 10^3/uL 4.8-10. [address] Count 8 [place] [address] [phone] Red Blood Count 3.97 10^6/uL Low 4.0-5.4 Hemoglobin 13.8 g/dL Low 14.0-18.0 Hematocrit 41 % Low 42-52 Mean Corpuscular Volume 104 fL High 80-94 Mean Corpuscular Hemoglobin 35 pg High 27-31 Mean Corpuscular HGB Conc 33 g/dL 31-36 Red Cell Distribution Width 15 % 10.5-15 Platelet Count 405 10^3/uL 150-450 Mean Platelet Volume 7 um3 Low 7.4-10.4 Abs Neutrophils 7.3 10^3/uL 1.5-7.7 Abs Lymphocytes 1.1 10^3/uL 1.0-4.8 Abs Monocytes 0.8 10^3/uL 0-0.8 Abs Eosinophils 0 10^3/uL 0-0.6 Abs Basophils 0.1 10^3/uL 0-0.2 Abs Nucleated RBC 0.01 10^3/uL Granulocyte % 78.9 % 38-83 Lymphocyte % 11.5 % Low 25-47 Monocyte % 8.6 % 1-9 Eosinophil % 0.4 % 0-6 Basophil % 0.6 % 0-2 Nucleated Red Blood Cells % 0.1 Comp Metabolic Panel 02/13/2013 [facility] Sodium 137 mmol/L 133-[address] [place] [address] [phone] Potassium 3.7 mmol/L 3.5-5.0 Chloride 104 mmol/L 101-111 Co2 Carbon Dioxide 25.0 mmol/L 22-32 Anion Gap 8.0 mmol/L 2-11 Glucose 140 mg/dL High 70-100 Blood Urea Nitrogen 13 mg/dL 6-24 Creatinine 0.90 mg/dL 0.50-1.40 BUN/Creatinine Ratio 14.4 8-20 Calcium 9.4 mg/dL 8.1-9.9 Total Protein 8.0 g/dL 6.2-8.1 Albumin 2.8 g/dL Low 3.2-5.2 Globulin 5.2 g/dL High 2-4 Albumin/Globulin Ratio 0.5 Low 1-3 Total Bilirubin 0.9 mg/dL 0.4-1.5 Alkaline Phosphatase 72 U/L 30-110 Alt 28 U/L 14-54 Ast 27 U/L 12-42 Egfr Non- 82.9 >60 Egfr 106.7 >60 27 Laboratory test finding 02/13/2013 [facility] Lipase 400 U/L High 22-[address] [place] [address] [phone] C Reactive Protein 8.7 mg/dL High Less than 0.5 Surgical 02/05/2013 [facility] S RUN DATE: [address] 02/09/ <[place] [address] NOTE> [phone] CBC With Manual 01/30/2013 [facility] White Blood 8.2 10^3/uL 4.8-10. Diff [address] Count 8 [place] [address] [phone] Red Blood Count 4.06 10^6/uL 4.0-5.4 Hemoglobin 15.3 g/dL 14.0-18.0 Hematocrit 44 % 42-52 Mean Corpuscular Volume 108 fL High 80-94 Mean Corpuscular Hemoglobin 38 pg High 27-31 Mean Corpuscular HGB Conc 35 g/dL 31-36 Red Cell Distribution Width 15 % 10.5-15 Platelet Count 164 10^3/uL 150-450 Mean Platelet Volume 9 um3 7.4-10.4 Abs Neutrophils 7.4 10^3/uL 1.5-7.7 Abs Lymphocytes 0.6 10^3/uL Low 1.0-4.8 Abs Monocytes 0.2 10^3/uL 0-0.8 Abs Eosinophils 0 10^3/uL 0-0.6 Abs Basophils 0.1 10^3/uL 0-0.2 Abs Nucleated RBC 0 10^3/uL Neutrophil % 92 % High 38-83 Lymphocytes % 5 % Low 25-47 Monocytes % 2 % 0-13 Eosinophils % 1 % 0-6 Macrocytosis 1+ Laboratory test 01/30/2013 [facility] Pathologist (SEE NOTE) [address] [place] [address] [phone] Comp Metabolic 01/29/2013 [facility] Sodium 134 mmol/L 133-[address] 45 [place] [address] [phone] Potassium 3.7 mmol/L 3.5-5.0 Chloride 99 mmol/L Low 101-111 Co2 Carbon Dioxide 28.0 mmol/L 22-32 Anion Gap 7.0 mmol/L 2-11 Glucose 179 mg/dL High 70-100 Blood Urea Nitrogen 13 mg/dL 6-24 Creatinine 1.20 mg/dL 0.50-1.40 BUN/Creatinine Ratio 10.8 8-20 Calcium 9.0 mg/dL 8.1-9.9 Total Protein 5.7 g/dL Low 6.2-8.1 Albumin 3.3 g/dL 3.2-5.2 Globulin 2.4 g/dL 2-4 Albumin/Globulin Ratio 1.4 1-3 Total Bilirubin 0.9 mg/dL 0.4-1.5 Alkaline Phosphatase 90 U/L 30-110 Alt 32 U/L 14-54 Ast 35 U/L 12-42 Egfr Non- 59.5 >60 Egfr 76.5 >60 31 Laboratory test finding 01/29/2013 [facility] Lipase 157 U/L High 22-[address] [place] [address] [phone] Amylase 223 U/L High 20-120 33 Laboratory test 07/03/2012 [facility] PSA Diagnostic 0.03 ng/mL 0-4.[address] [place] [address] [phone] Laboratory test 11/20/2011 [facility] Lyme Disease Positive Negative [address] [place] [address] [phone] Lyme Disease AB 11/20/2011 [facility] Lyme Igg Positive Negative Conf. West.Blot [address] [place] [address] [phone] Lyme Igg Bands Detected SEE BELOW kDa () 36 Lyme Igm Western Blot Positive Negative Lyme Igm Bands Detected p41, p39, p23, kDa () Lyme Disease Interpretation . () 37 Laboratory test 07/04/2011 [facility] PSA,Diagnostic 0.0 NG/ML 0-4 [address] [place] [address] [phone] Lipid Panel - 11/22/2010 [facility] CPK (Creatine 178 U/L 0- [address] Kinase) [place] [address] [phone] Comp Metabolic 11/22/2010 [facility] Sodium 139 135-[address] mmol/[place] [address] [phone] Potassium 4.0 mmol/L 3.5-5.0 Chloride 107 mmol/L 101-111 Co2 (Carbon Dioxide) 25.0 mmol/L 22-32 Anion Gap 7.0 mmol/L 2-11 39 Glucose 98 mg/dL 70-100 BUN 14 mg/dL 6-24 Creatinine 1.00 mg/dL 0.50-1.40 One Over Creatinine 1.00 BUN/Creatinine Ratio 14.0 8-20 Calcium 9.6 mg/dL 8.1-9.9 Total Protein 7.2 GM/DL 6.2-8.1 Albumin 4.3 GM/DL 3.2-5.2 Globulin 2.9 GM/DL 2-4 Albumin/Globulin Ratio 1.5 1-3 Bilirubin Total 1.0 mg/dL 0.4-1.5 40 Alkaline Phosphatase 64 U/L 39-117 Alt (SGPT) 30 U/L 17-63 Ast (Sgot) 39 U/L 12-42 eGFR Non- 74.1 > 60 eGFR 95.3 > 60 41 Lipid Profile 11/22/2010 [facility] Triglyceride 76 mg/dL 40- 200 (Trig/Chol/HDL) [address] [place] [address] [phone] Cholesterol 228 mg/dL High Less Than 200 42 High Density Lipoprotein 78 mg/dL High 40-60 43 Cholesterol/HDL Ratio 2.92 AVERAGE 1-4.97 Low Density Lipoprotein 135 mg/dL High Less Than 100 44 Protime 02/08/2010 [facility] Inr 0.95 Low 0.97-1.03 45, [address] [place] [address] [phone] Protime 11.2 SEC Low 11.5-12.2 47 Manual Differential 02/08/2010 [facility] Polysegmented 75 % 38-[address] [place] [address] [phone] Lymphocyte 19 % Low 25-47 Monocyte 5 % 0-13 Basophil 1 % 0-2 Absolute Neutrophil Count 6.8 Anisocytosis SLIGHT Hypochromasia SLIGHT CBC With 02/08/2010 [facility] White Blood 9.1 CUMM 4.8-10.8 Electronic Diff [address] [place] [address] [phone] Red Cell Count 3.63 CUMM Low 4.6-6.2 Hemoglobin 11.8 g/dL Low 14.0-18.0 Hematocrit 34 % Low 42-52 Mean Corpuscular Volume 95 um3 High 80-94 Mean Corpuscular Hemoglob 32 pg High 27-31 Mean Corpuscular HGB Cone 34 g/dL 32-36 Redcell Distribution WDTH 16 % High 10.5-15 Platelet Count 387 CUMM 150-450 Mean Platelet Volume 6.4 um3 Low 7.4-10.4 48 Basic Metabolic Panel 02/08/2010 [facility] Sodium 139 mmol/L 135-[address] [place], [place] [address] [phone] Potassium 4.8 mmol/L 3.5-5.0 Chloride 103 mmol/L 101-111 Co2 (Carbon Dioxide) 28.0 mmol/L 22-32 Anion Gap 8.0 mmol/L 2-11 49 Glucose 93 mg/dL 70-100 50 BUN 18 mg/dL 6-24 Creatinine 0.80 mg/dL 0.50-1.40 One Over Creatinine 1.20 BUN/Creatinine Ratio 22.5 High 8-20 Calcium 9.3 mg/dL 8.1-9.9 51 eGFR Non- 101.9 > 60 eGFR 123.3 > 60 52 Body Fluid C&S 01/20/2010 [facility] Body Fluid MANY GRAM 53, [address] Smear POSITI <[place] [address] NOTE> [phone] Laboratory test 01/20/2010 [facility] Body Fluid Cult STREP [address] [place] [address] <SEE NOTE> [phone] Gram Pos Sensi 01/20/2010 [facility] Ampicillin <=0.[address] [place], [place] [id number] [phone] Azithromycin <=0.25 S Chloramphenicol 2 S Ceftriaxone <=0.25 S Clindamycin <=0.06 S Cefotaxime <=0.25 S Cefepime <=0.25 S Erythromycin <=0.06 S Levofloxacin 1 S Penicillin <=0.03 S Tetracylcline <=0.5 S Vancomycin 1 S Cytology 01/20/2010 [facility] Cytology Non 56 Non-Operating Table Assembler [address] Operating Table Assembler <SEE NOTE> [place] [address] [phone] Protime 01/20/2010 [facility] Inr 1.25 High 0.[address] -1.0 [place] [address] 3 [phone] Protime 14.8 SEC High 11.5-12.2 58 Laboratory test 01/20/2010 [facility] PTT (Aptt) 27.6 25.15- 38.[address] [place] [address] [phone] CBC With Manual 01/13/2010 [facility] White Blood 14.4 CUMM High 4.8-10.[address] [place] [address] [phone] Red Cell Count 3.73 CUMM Low 4.6-6.2 Hemoglobin 12.2 g/dL Low 14.0-18.0 Hematocrit 36 % Low 42-52 Mean Corpuscular Volume 97 um3 High 80-94 Mean Corpuscular Hemoglob 33 pg High 27-31 Mean Corpuscular HGB Cone 34 g/dL 32-36 Redcell Distribution WDTH 15 % 10.5-15 Platelet Count 446 CUMM 150-450 Mean Platelet Volume 7.4 um3 7.4-10.4 Polysegmented Neutrophil 78 % 38-83 Band Neutrophil 3 % 0-8 Lymphocyte 10 % Low 25-47 Monocyte 8 % 0-13 Eosinophil 1 % 0-6 Absolute Neutrophil Count 11.6 Anisocytosis SLIGHT Laboratory test 12/30/2009 [facility] TSH 1.10 MIU/ML 0.34- 5.[address] [place] [address] [phone] Vitamin B12 221 pg/mL 180-914 Thyroxine Free 1.12 NG/ML 0.61-1.24 60 Comp Metabolic Panel 12/30/2009 [facility] Sodium 136 mmol/L 135-[address] [place] [address] [phone] Potassium 4.0 mmol/L 3.5-5.0 Chloride 100 mmol/L Low 101-111 Co2 (Carbon Dioxide) 23.0 mmol/L 22-32 Anion Gap 13.0 mmol/L High 2-11 61 Glucose 142 mg/dL High 70-100 62 BUN 16 mg/dL 6-24 Creatinine 1.10 mg/dL 0.50-1.40 One Over Creatinine 0.90 BUN/Creatinine Ratio 14.5 8-20 Calcium 9.3 mg/dL 8.1-9.9 63 Total Protein 7.5 GM/DL 6.2-8.1 Albumin 3.0 GM/DL Low 3.2-5.2 Globulin 4.5 GM/DL High 2-4 Albumin/Globulin Ratio 0.7 Low 1-3 Bilirubin Total 0.8 mg/dL 0.4-1.5 64 Alkaline Phosphatase 75 U/L 39-117 Alt (SGPT) 23 U/L 17-63 Ast (Sgot) 24 U/L 12-42 eGFR Non- 70.5 > 60 eGFR 85.4 > 60 65 CBC With 12/30/2009 [facility] White Blood 15.1 CUMM High 4.8- 10.8 Manual Diff [address] [place] [address] [phone] Red Cell Count 3.95 CUMM Low 4.6-6.2 Hemoglobin 13.2 g/dL Low 14.0-18.0 Hematocrit 39 % Low 42-52 Mean Corpuscular Volume 99 um3 High 80-94 Mean Corpuscular Hemoglob 33 pg High 27-31 Mean Corpuscular HGB Cone 34 g/dL 32-36 Redcell Distribution WDTH 14 % 10.5-15 Platelet Count 458 CUMM High 150-450 Mean Platelet Volume 7.6 um3 7.4-10.4 Polysegmented Neutrophil 80 % 38-83 Band Neutrophil 5 % 0-8 Lymphocyte 12 % Low 25-47 Monocyte 3 % 0-13 Absolute Neutrophil Count 12.8 RBC Morphology NORMAL Surgical 06/10/2009 [facility] Surgical 66 Pathology 101 [facility] Pathology <SEE NOTE> [place], [place] [id number] [phone] Laboratory 04/26/2009 [facility] TSH 1.28 MIU/ML 0.34 test finding [facility] -5.6 [place] [address] 0 [phone] PSA Screening 0.0 NG/ML 0-4 67 Vitamin D, 25 04/26/2009 [facility] 25-Hydroxy Vitamin <4.0 ng/ mL () Hydroxy [facility] D2 [place] [address] [phone] 25-Hydroxy Vitamin D3 29 ng/mL () 25-Hydroxy Vitamin D Total 29 ng/mL () 68 PTH Intact, Inc 04/26/2009 [facility] PTH Intact 4.2 PMOL/L 1.3-9.3 69 [place] [address] [phone] Calcium For Pthi 9.7 mg/dL 8.1-9.9 70 Lipid Profile 04/26/2009 [facility] Triglyceride 126 mg/dL 40 -200 (Trig/Chol/HDL) [address] [place] [address] [phone] Cholesterol 233 mg/dL High Less Than 200 71 High Density Lipoprotein 77 mg/dL High 40-60 72 Cholesterol/HDL Ratio 3.03 AVERAGE 1-4.97 Low Density Lipoprotein 131 mg/dL High Less Than 100 73 Comp Metabolic Panel 04/26/2009 [facility] Sodium 137 mmol/L 135-145 [address] [place] [address] [phone] Potassium 4.5 mmol/L 3.5-5.0 Chloride 105 mmol/L 101-111 Co2 (Carbon Dioxide) 27.0 mmol/L 22-32 Anion Gap 5.0 mmol/L 2-11 74 Glucose 99 mg/dL 70-100 75 BUN 14 mg/dL 6-24 Creatinine 1.10 mg/dL 0.50-1.40 One Over Creatinine 0.90 BUN/Creatinine Ratio 12.7 8-20 Calcium 9.7 mg/dL 8.1-9.9 76 Total Protein 7.7 GM/DL 6.2-8.1 Albumin 4.1 GM/DL 3.2-5.2 Globulin 3.6 GM/DL 2-4 Albumin/Globulin Ratio 1.1 1-3 Bilirubin Total 1.0 mg/dL 0.4-1.5 77 Alkaline Phosphatase 60 U/L 39-117 Alt (SGPT) 35 U/L 17-63 Ast (Sgot) 44 U/L High 12-42 eGFR Non- 70.8 > 60 eGFR 85.6 > 60 78 Lipid Panel - 04/26/2009 [facility] CPK (Creatine 129 U/L 0- [address] Kinase) [place] [address] [phone] Stool For 10/22/2008 [facility] Stool For NEGATIVE Negative Blood [address] [place] [address] [phone] Laboratory 10/22/2008 [facility] C. Difficile TEST 79 test finding [address] [place] [address] <SEE NOTE> [phone] CBC With 10/20/2008 [facility] White Blood 8.6 CUMM 4.8-10.8 Manual Diff [address] [place] [address] [phone] Red Cell Count 4.26 CUMM Low 4.6-6.2 Hemoglobin 14.9 g/dL 14.0-18.0 Hematocrit 43 % 42-52 Mean Corpuscular Volume 100 um3 High 80-94 Mean Corpuscular Hemoglob 35 pg High 27-31 Mean Corpuscular HGB Cone 35 g/dL 32-36 Redcell Distribution WDTH 14 % 10.5-15 Platelet Count 237 CUMM 150-450 Mean Platelet Volume 7.9 um3 7.4-10.4 Polysegmented Neutrophil 73 % 38-83 Lymphocyte 11 % Low 25-47 Monocyte 9 % 0-13 Eosenophil 1 % 0-6 Atypical Lymph 6 % 0-6 Absolute Neutrophil Count 6.2 Anisocytosis SLIGHT Comp Metabolic Panel 10/20/2008 [facility] Sodium 139 mmol/L 135-[address] [place] [address] [phone] Potassium 3.2 mmol/L Low 3.5-5.0 Chloride 106 mmol/L 101-111 Co2 (Carbon Dioxide) 22.0 mmol/L 22-32 Anion Gap 11.0 mmol/L 2-11 80 Glucose 135 mg/dL High 70-100 81 BUN 18 mg/dL 6-24 Creatinine 1.00 mg/dL 0.50-1.40 One Over Creatinine 1.00 BUN/Creatinine Ratio 18.0 8-20 Calcium 10.5 mg/dL High 8.1-9.9 82 Total Protein 7.3 GM/DL 6.2-8.1 Albumin 4.3 GM/DL 3.2-5.2 Globulin 3.0 GM/DL 2-4 Albumin/Globulin Ratio 1.4 1-3 Bilirubin Total 0.9 mg/dL 0.4-1.5 Alkaline Phosphatase 66 U/L 39-117 Alt (SGPT) 48 U/L 17-63 Ast (Sgot) 62 U/L High 12-42 Lipid Panel - 04/21/2008 [facility] CPK (Creatine 74 U/L 0- 200 [address] Kinase) [place] [address] [phone] Comp Metabolic 04/21/2008 [facility] Sodium 145 135-[address] mmol/[place] [address] [phone] Potassium 4.4 mmol/L 3.5-5.0 Chloride 111 mmol/L 101-111 Co2 (Carbon Dioxide) 28.0 mmol/L 22-32 Anion Gap 6.0 mmol/L 2-11 84 Glucose 94 mg/dL 70-100 85 BUN 27 mg/dL High 6-24 Creatinine 1.02 mg/dL 0.50-1.40 One Over Creatinine 0.90 BUN/Creatinine Ratio 26.5 High 8-20 Calcium 9.5 mg/dL 8.1-9.9 86 Total Protein 7.4 GM/DL 6.2-8.1 Albumin 3.9 GM/DL 3.2-5.2 Globulin 3.5 GM/DL 2-4 Albumin/Globulin Ratio 1.1 1-3 Bilirubin Total 0.7 mg/dL 0.4-1.5 Alkaline Phosphatase 69 U/L 39-117 Alt (SGPT) 26 U/L 17-63 Ast (Sgot) 30 U/L 12-42 Lipid Profile 04/21/2008 [facility] Triglyceride 194 mg/dL 40 -200 (Trig/Chol/HDL) [address] [place] [address] [phone] Cholesterol 231 mg/dL High Less Than 200 87 High Density Lipoprotein 67 mg/dL High 40-60 88 Cholesterol/HDL Ratio 3.45 AVERAGE 1-4.97 Low Density Lipoprotein 125 mg/dL High Less Than 100 89 Comp Metabolic Panel 05/27/2007 [facility] One Over Creatinine 0.[address] [place] [address] [phone] Anion Gap 5.0 mmol/L 2-11 90 Albumin/Globulin Ratio 1.2 1-3 Albumin 3.8 GM/DL 3.2-5.2 Alkaline Phosphatase 71 U/L 39-117 Alt (SGPT) 34 U/L 17-63 Ast (Sgot) 35 U/L 12-42 BUN 19 mg/dL 6-24 Calcium 9.7 mg/dL 8.7-10.2 Chloride 108 mmol/L 101-111 Co2 (Carbon Dioxide) 27.0 mmol/L 22-32 Globulin 3.3 GM/DL 2-4 Glucose 95 mg/dL 70-105 Potassium 4.6 mmol/L 3.5-5.0 Sodium 140 mmol/L 135-145 Bilirubin Total < 0.1 mg/dL Low 0.4-1.5 Total Protein 7.1 GM/DL 6.2-8.1 BUN/Creatinine Ratio 15.8 8-20 Creatinine 1.2 mg/dL 0.5-1.4 Laboratory test 05/27/2007 [facility] PSA Screening 0.0 NG/ML 0-4 [address] [place] [address] [phone] Laboratory test 05/27/2007 [facility] TSH 1.51 0.34-5.[address] MIU/ML 0 [place] [address] [phone] Comp Metabolic 05/12/2007 [facility] One Over 1.00 [address] [place] [address] [phone] Anion Gap 8.0 mmol/L 2-11 93 Albumin/Globulin Ratio 1.4 1-3 Albumin 4.2 GM/DL 3.2-5.2 Alkaline Phosphatase 64 U/L 39-117 Alt (SGPT) 24 U/L 17-63 Ast (Sgot) 39 U/L 12-42 BUN 19 mg/dL 6-24 Calcium 9.5 mg/dL 8.7-10.2 Chloride 105 mmol/L 101-111 Co2 (Carbon Dioxide) 24.0 mmol/L 22-32 Globulin 3.0 GM/DL 2-4 Glucose 114 mg/dL High 70-105 Potassium 4.9 mmol/L 3.5-5.0 Sodium 137 mmol/L 135-145 Bilirubin Total 2.0 mg/dL High 0.4-1.5 Total Protein 7.2 GM/DL 6.2-8.1 BUN/Creatinine Ratio 19.0 8-20 Creatinine 1.0 mg/dL 0.5-1.4 Laboratory 05/12/2007 [facility] Lipase 1413 U/L High 22-51 94 test finding [address] [place], [place] [id number] [phone] Amylase Stat 05/12/2007 [facility] Amylase 1220 U/L High 30- [address] [place], [place] [address] [phone] Alcohol Stat 05/12/2007 [facility] Alcohol < 10.0 None [address] mg/[place] [address] [phone] CBC With 05/12/2007 [facility] RBC Morphology NORMAL Manual Diff [address] [place] [address] [phone] White Blood Count 12.1 CUMM High 4.8-10.8 Absolute Neutrophil Count 10.7 Band Neutrophil 1 % 0-8 Hematocrit 42 % 42-52 Hemoglobin 14.0 g/dL 14.0-18.0 Eosenophil 1 % 0-6 Lymphocyte 6 % 5-47 Mean Corpuscular HGB Cone 34 g/dL 32-36 Mean Corpuscular Hemoglob 37 pg High 27-31 Mean Corpuscular Volume 111 um3 High 80-94 97 Monocyte 4 % 0-13 Mean Platelet Volume 7.3 um3 Low 7.4-10.4 Platelet Count 254 CUMM 150-450 Polysegmented Neutrophil 88 % High 38-83 Red Cell Count 3.78 CUMM Low 4.6-6.2 Redcell Distribution WDTH 15 % 10.5-15 Laboratory test 05/12/2007 [facility] Troponin-I (TnI) 0.02 NG/ ML 0-0.06 [address] [place] [address] [phone] 1 Critical Result LACT:3.4 Called to [id number] at: 22:36:34 by:[id number] Read back by:[id number] [facility] Severe Sepsis and Septic Shock Management Bundle Measure requires all lactic acids initially measuring >2.0 mmol/L be repeated. 2 Because ethnic data is not always readily available, this report includes an eGFR for both -Americans and non- Americans. The National Kidney Disease Education Program (NKDEP) does not endorse the use of the MDRD equation for patients that are not between the ages of 18 and 70, are , have extremes of body size, muscle mass, or nutritional status, or are non- or non-. According to the National Kidney Foundation, irrespective of diagnosis, the stage of the disease is based on the level of kidney function: Stage Description GFR(mL/min/1.73 m(2)) 1 Kidney damage with normal or decreased GFR 90 2 Kidney damage with mild decrease in GFR 60-89 3 Moderate decrease in GFR 30-59 4 Severe decrease in GFR 15-29 5 Kidney failure <15 (or dialysis) 3 Specimen Hemolyzed. Result may not be valid. Unable to report test result due to hemolysis. 4 Unable to report test result due to hemolysis. 5 Result TnIDx:0.04 Called to [employer] at: 22:58:14 by:[id number] Read back by: [id number] Troponin-I testing on Plasma Separator Tubes (PST) has a known false positive rate of 0.20-0.40%. All positive troponins reflex immediate secondary confirmatory testing. 6 SEE RESULT BELOW Name: KVNG CASILLAS : [address]: Nikhil Gomes MD Acct: [id number] Unit: [id number] AGE: 77 Location: ED Re09/27/18 SEX: M Status: DEP ER SPEC: [id number] JESU: 09/27/[address] [facility] [address]: Nikhil Gomes MD REQ: [id number] RECD: 09/27/18 STATUS: HUMBERTO TURNER DR: Mango Infante MD _ SOURCE: BLOOD,VENO SPDESC: ORDERED: Blood Cult Procedure Result Reported Site Aerobic Culture Bottle Final 10/02/18- 2300 ML No Growth Day 5 Anaerobic Culture Bottle Final 10/02/18- 2300 ML No Growth Day 5 * ML - Main Lab . END OF REPORT DEPARTMENT OF PATHOLOGY, [address] [place] [address] Hiro Holloway M.D. Director [facility] # [id number] FASTING 10 HOUR 8 Desirable: <150 Borderline High: 150-199 High: 200-499 Very High: >500 9 Desirable: <200 Borderline High: 200-239 High: >239 10 Low: <40 Desirable: 40-60 High: >60 11 Desirable: <100 Near Optimal: 100-129 Borderline High: 130-159 High: 160-189 Very High: >189 12 Because ethnic data is not always readily available, this report includes an eGFR for both -Americans and non- Americans. The National Kidney Disease Education Program (NKDEP) does not endorse the use of the MDRD equation for patients that are not between the ages of 18 and 70, are , have extremes of body size, muscle mass, or nutritional status, or are non- or non-. According to the National Kid[employer] Foundation, irrespective of diagnosis, the stage of the disease is based on the level of kidney function: Stage Description GFR(mL/min/1.73 m(2)) 1 Kidney damage with normal or decreased GFR 90 2 Kidney damage with mild decrease in GFR 60-89 3 Moderate decrease in GFR 30-59 4 Severe decrease in GFR 15-29 5 Kidney failure <15 (or dialysis) 13 Desirable <150 Borderline high 150-199 High 200-499 Very High >500 14 Desirable <200 Borderline high 200-239 High >239 15 Low <40 Desirable: 40-60 High: >60 16 Desirable: <100 mg/dL Near Optimal: 100-129 mg/dL Borderline High: 130-159 mg/dL High: 160-189 mg/dL Very High: >189 mg/dL 17 Serum levels of PSA measured using the [employer] DXI Hybritech immunoassay should not be interpreted as absolute evidence of the presence or absence of disease. The PSA value should be used in conjunction with other pertinent clinical diagnostic procedures. A PSA value in the range of 0.1 to 0.6 ng/ml is indeterminate if being used as an indicator of recurrent or residual disease. The values obtained with different assay methods or kits cannot be used interchangeably. 18 Because ethnic data is not always readily available, this report includes an eGFR for both -Americans and non- Americans. The National Kidney Disease Education Program (NKDEP) does not endorse the use of the MDRD equation for patients that are not between the ages of 18 and 70, are , have extremes of body size, muscle mass, or nutritional status, or are non- or non-. According to the National Kidney Foundation, irrespective of diagnosis, the stage of the disease is based on the level of kidney function: Stage Description GFR(mL/min/1.73 m(2)) 1 Kidney damage with normal or decreased GFR 90 2 Kidney damage with mild decrease in GFR 60-89 3 Moderate decrease in GFR 30-59 4 Severe decrease in GFR 15-29 5 Kidney failure <15 (or dialysis) 19 Because ethnic data is not always readily available, this report includes an eGFR for both -Americans and non- Americans. The National Kidney Disease Education Program (NKDEP) does not endorse the use of the MDRD equation for patients that are not between the ages of 18 and 70, are , have extremes of body size, muscle mass, or nutritional status, or are non- or non-. According to the National Kidney Foundation, irrespective of diagnosis, the stage of the disease is based on the level of kidney function: Stage Description GFR(mL/min/1.73 m(2)) 1 Kidney damage with normal or decreased GFR 90 2 Kidney damage with mild decrease in GFR 60-89 3 Moderate decrease in GFR 30-59 4 Severe decrease in GFR 15-29 5 Kidney failure <15 (or dialysis) 20 Serum levels of PSA measured using the [employer] DXI Hybritech immunoassay should not be interpreted as absolute evidence of the presence or absence of disease. The PSA value should be used in conjunction with other pertinent clinical diagnostic procedures. A PSA value in the range of 0.1 to 0.6 ng/ml is indeterminate if being used as an indicator of recurrent or residual disease. The values obtained with different assay methods or kits cannot be used interchangeably. 21 FASTING 10 HOUR 22 Desirable <150 Borderline high 150-199 High 200-499 Very High >500 23 Desirable <200 Borderline high 200-239 High >239 24 Low <40 Desirable: 40-60 High: >60 25 Desirable <100 Near Optimal 100-129 Borderline high 130-159 High 160-189 Very High >189 26 RUN DATE: 12/15/13 [facility] LAB LIVE PAGE 1 RUN TIME: [address] [place] [id number] Specimen Inquiry Name: KVNG CASILLAS : [address]: Keyana Ba MD Acct: [id number] Unit: [id number] AGE: 73 Location: [facility] Re12/04/13 SEX: M Status: REG [facility] [place] [facility] SPEC: [id number] JESU: 12/04/13- SUBM DR: Keyana Ba MD REQ: [id number] RECD: 12/04/13-1215 STATUS: CAMRYNT _ ORDERED: Eric, LEVEL III FINAL DIAGNOSIS Portion of acromion and bursa left, excision: A. Benign bone and cartilage with fragments of skeletal muscle. B. Benign synovial tissue with reactive change. PRE-OPERATIVE DIAGNOSIS Rotator cuff tear left GROSS DESCRIPTION The specimen is received in formalin labeled Kvng Casillas, Portion of Acromion and Bursa Left, and consists of a 4.2 x 3.0 x 0.6 cm. aggregate of multiple carr- pink, irregular portions of bone admixed with carr-pink, rubbery soft tissue. Received separately in the same container is a 6.5 x 1.2 x 0.1 cm. carr-white to carr-pink rubbery portion of fibrous tissue. The specimen is sectioned and publications sales representative sections are submitted in cassettes A and B to include fibrous tissue in cassette A and bone following decalcification in cassette B. MICROSCOPIC DESCRIPTION Signed (signature on file) Paola Preciado MD 1442 END OF REPORT * ML=Testing performed at Main Lab DEPARTMENT OF PATHOLOGY, [address] [place] [address] Hiro Holloway M.D. Director [facility] # [id number] 27 Because ethnic data is not always readily available, this report includes an eGFR for both -Americans and non- Americans. The National Kidney Disease Education Program (NKDEP) does not endorse the use of the MDRD equation for patients that are not between the ages of 18 and 70, are , have extremes of body size, muscle mass, or nutritional status, or are non- or non-. According to the National Kidney Foundation, irrespective of diagnosis, the stage of the disease is based on the level of kidney function: Stage Description GFR(mL/min/1.73 m(2)) 1 Kidney damage with normal or decreased GFR 90 2 Kidney damage with mild decrease in GFR 60-89 3 Moderate decrease in GFR 30-59 4 Severe decrease in GFR 15-29 5 Kidney failure <15 (or dialysis) 28 Verbal to [id number] by at 1443 on 02/13/13. Results read back accurately. 29 RUN DATE: 02/09/13 [facility] LAB LIVE PAGE 1 RUN TIME: [address] [place] [address] Specimen Inquiry Name: KVNG CASILLAS : [address]: Eben Carreon MD Acct: [id number] Unit: [id number] AGE: 72 Location: ENDO Re02/05/13 SEX: M Status: REG REF SPEC: [id number] JESU: 02/05/13- SUBM DR: Eben Carreon MD REQ: [id number] RECD: 02/05/13 STATUS: DEXTER TURNER DR: Mango Infante MD _ ORDERED: LEVEL IV FINAL DIAGNOSIS Submucosal gastric mass, excision: A. Gastric antral type mucosa with mild chronic inflammation. B. No active gastritis or Helicobacter pylori-like organisms identified. C. No evidence of neoplasia identified (see comment). COMMENTS: The biopsies while ample representation of mucosa and superficial muscularis may not be sufficiently deep to demonstrate the clinically described submucosa mass. Correlation with clinical and endoscopic findings is suggested. CLINICAL HISTORY Pancreatic mass POST-OPERATIVE DIAGNOSIS Pancreatic mass suspicious for cancer GROSS DESCRIPTION The specimen is received in formalin labeled Kvng Casillas, Biopsy Submucosal Gastric Mass, and consists of multiple carr, soft tissue fragments measuring 0.9 x 0.3 x 0.2 cm. in aggregate. Submitted entirely, one cassette. Signed (signature on file) Hiro Holloway MD 1333 END OF REPORT * ML=Testing performed at Main Lab DEPARTMENT OF PATHOLOGY, [address] [place] [address] Hiro Holloway M.D. Director [facility] Permit #[id number] 30 CBC and smear reviewed. Hemoglobin adequate with 1+ macro- cytosis. Clinical correlation recommended. Reviewed by Paola Preciado MD 31 Because ethnic data is not always readily available, this report includes an eGFR for both -Americans and non- Americans. The National Kidney Disease Education Program (NKDEP) does not endorse the use of the MDRD equation for patients that are not between the ages of 18 and 70, are , have extremes of body size, muscle mass, or nutritional status, or are non- or non-. According to the National Kidney Foundation, irrespective of diagnosis, the stage of the disease is based on the level of kidney function: Stage Description GFR(mL/min/1.73 m(2)) 1 Kidney damage with normal or decreased GFR 90 2 Kidney damage with mild decrease in GFR 60-89 3 Moderate decrease in GFR 30-59 4 Severe decrease in GFR 15-29 5 Kidney failure <15 (or dialysis) [address] KILPATRICK by SUAD at 1927 on 01/29/13. Results read back accurately. [address] KILPATRICK by [id number] at 1927 on 01/29/13. Results read back accurately. 34 Serum levels of PSA measured using the [employer] DXI Hybritech immunoassay should not be interpreted as absolute evidence of the presence or absence of disease. The PSA value should be used in conjunction with other pertinent clinical diagnostic procedures. A PSA value in the range of 0.1 to 0.6 ng/ml is indeterminate if being used as an indicator of recurrent or residual disease. The values obtained with different assay methods or kits cannot be used interchangeably. 35 Not diagnostic. Supplemental testing ordered by reflex. Test Performed by: [facility] Dpt of Lab Med and Pathology [address] [place] [address] [employer]: Gregg Rosen III, M.D. 36 RESULT: p66, p45, p41, p23, p18, 37 Consistent with active or previous infection for B. burgdorferi. IgM blot criteria is of diagnostic utility only during the first 4 weeks of early Lyme disease. CDC criteria require >=5 bands for IgG or >=2 bands for IgM for the Western blot to be considered positive. Bands (e.g.,p41) may be detected in patients without Lyme disease, and patterns not meeting the CDC criteria should be interpreted with caution. Western blot should be ordered only on specimens that are positive or equivocal by a FDA-licensed Lyme disease antibody screening test (e.g., EIA). Test performed by Immunoblot. Test Performed by: [facility] Dpt of Lab Med and Pathology [address] [place] [address] [employer]: Gregg Rosen III, M.D. 38 * SERUM LEVELS OF PSA MEASURED USING THE DEVON JENNY ACCESS HYBRITECH IMMUNOASSAY SHOULD NOT BE INTERPRETED ABSOLUTE EVIDENCE OF THE PRESENCE OR ABSENCE OF DISEASE. THE PSA VALUE SHOULD BE USED IN CONJUNCTION WITH OTHER PERTINENT CLINICAL DIAGNOSTIC PROCEDURES. A PSA value in the range of 0.1 to 0.6 ng/ml is indeterminate if being used as an indicator of recurrent or residual disease. . The values obtained with different assay methods of kits cannot be used interchangeably. 39 Anion gap measurement may be of limited value in the presence of any alkalosis, especially in a combined acid base disorder. . 40 A metabolite of Naproxen, O-desmethylnaproxen, has been shown to interfere with the [place]-Desiree method for measuring total bilirubin. Samples from patients who have taken Naproxen have shown spurious elevation in total bilirubin levels. 41 Because ethnic data is not always readily available, this report includes an eGFR for both -Americans and non- Americans. The National Kidney Disease Education Program (NKDEP) does not endorse the use of the MDRD equation for patients that are not between the ages of 18 and 70, are , have extremes of body size, muscle mass, or nutritional status, or are non- or non-. According to the National Kidney Foundation, irrespective of diagnosis, the stage of the disease is based on the level of kidney function: Stage Description GFR(mL/min/1.73 m(2)) 1 Kidney damage with normal or decreased GFR 90 2 Kidney damage with mild decrease in GFR 60-89 3 Moderate decrease in GFR 30-59 4 Severe decrease in GFR 15-29 5 Kidney failure <15 (or dialysis) 42 CHOLESTEROL INTERPRETATION: Desirable: Less than 200 MG/DL Borderline-High Risk: 200-239 MG/DL High-Risk: 240 MG/DL and over 43 HDL INTERPRETATION: Undesirable: High Risk: Less than 40 MG/DL Desirable: Low Risk: Greater than 60 MG/DL 44 LDL INTERPRETATION: Low Risk Optimal Level: LDL Less than 100 MG/DL Near or Above Optimal: LDL 100-129 MG/DL Borderline High Risk: LDL 130-159 MG/DL High Risk: LDL 160-189 MG/DL Very High Risk: LDL Greater than 189 MG/DL 45 SDS 02/20/10 46 Recommended INR for Patients on Oral Anticoagulants Prophylaxis 2.0 - 3.0 Treatment of thrombosis 2.0 - 3.0 Prevention of embolism 2.0 - 3.0 Prevention of embolism from prosthetic heart valves 2.5 - 3.5 47 DIAGNOSIS,TREATMENT,AND THERAPY MUST BE BASED ON THE INR VALUE ALONE. 48 Imm. NE 1 49 Anion gap measurement may be of limited value in the presence of any alkalosis, especially in a combined acid base disorder. . 50 Note change in reference range as of 02/12/08. The change was based on recommendations from the [place] [employer]. 51 Please note change in reference range effective 07 . 52 Because ethnic data is not always readily available, this report includes an eGFR for both -Americans and non- Americans. The National Kidney Disease Education Program (NKDEP) does not endorse the use of the MDRD equation for patients that are not between the ages of 18 and 70, are , have extremes of body size, muscle mass, or nutritional status, or are non- or non-. According to the National Kidney Foundation, irrespective of diagnosis, the stage of the disease is based on the level of kidney function: Stage Description GFR(mL/min/1.73 m(2)) 1 Kidney damage with normal or decreased GFR 90 2 Kidney damage with mild decrease in GFR 60-89 3 Moderate decrease in GFR 30-59 4 Severe decrease in GFR 15-29 5 Kidney failure <15 (or dialysis) 53 RIGHT LUNG FNA 54 MANY GRAM POSITIVE COCCI RESEMBLING STREP BY CYTOSPIN SMEAR MANY 55 STREP INTERMEDIUS/CONSTELLATUS M^MANY^QTY 56 ---- RUN DATE: 01/23/10 [facility] NMI LIVE PAGE 1 RUN TIME: 1513 Specimen Inquiry RUN USER: INTERFACE -- Name: KVNG CASILLAS Status: REG REF Re01/20/10 Age/Sex: 69/M Unit#: [id number] Location: LISSETH Ferreira : [birth year] -- Specimen: [id number] SOUT Spec Date: 01/20/[address]: Tony Frey MD Spec Type: CYTOLOGY Received: 01/20/10-2567 Copies to: Mango richter MD SOURCE FINE NEEDLE ASPIRATION right lung,CT guided PATIENT INFORMATION ACTUAL COLLECTION DATE: 01/20/10 PATIENT HISTORY: lung mass, significant weight loss, GROSS DESCRIPTION CT, fine needle aspiration x 3 passes with 6 alcohol fixed slide(s), 1 air dried slide(s) and Needle rinse in Cytolyt solution for cell block. IMMEDIATE INTERPRETATION adequate specimen. DIAGNOSIS Lung, right, CT guided fine needle aspirate: Abundant acute Inflammatory exudate and reactive cellular changes. COMMENT Correlation with pending cultures is warranted. Clinical and radiographic follow-up is suggested. Rebiopsy of any residual mass should be considered once inflammation has resolved. A cell block was prepared in the evaluation of this specimen. Initial evaluation performed by Ehsan THOMPSON([facility]) 01/20/10 Final Interpretation electronically signed by: HIRO HOLLOWAY MD 01/23/10 15 13 -- -- DEPARTMENT OF PATHOLOGY, [address] [place] [address] [facility] Permit #[id number] Hiro Holloway M.D. Director Keturah Escobar M.D. [employer] Pl[employer] Dir dossor -- 57 Recommended INR for Patients on Oral Anticoagulants Prophylaxis 2.0 - 3.0 Treatment of thrombosis 2.0 - 3.0 Prevention of embolism 2.0 - 3.0 Prevention of embolism from prosthetic heart valves 2.5 - 3.5 58 DIAGNOSIS,TREATMENT,AND THERAPY MUST BE BASED ON THE INR VALUE ALONE. 59 PLEASE NOTE NEW REFERENCE RANGE EFFECTIVE 09. 60 PLEASE NOTE NEW REFERENCE RANGES. 61 Anion gap measurement may be of limited value in the presence of any alkalosis, especially in a combined acid base disorder. . 62 Note change in reference range as of 02/12/08. The change was based on recommendations from the [place] [employer]. 63 Please note change in reference range effective 07 . 64 A metabolite of Naproxen, O-desmethylnaproxen, has been shown to interfere with the Jendrassik-Desiree method for measuring total bilirubin. Samples from patients who have taken Naproxen have shown spurious elevation in total bilirubin levels. 65 Because ethnic data is not always readily available, this report includes an eGFR for both -Americans and non- Americans. The National Kidney Disease Education Program (NKDEP) does not endorse the use of the MDRD equation for patients that are not between the ages of 18 and 70, are , have extremes of body size, muscle mass, or nutritional status, or are non- or non-. According to the National Kidney Foundation, irrespective of diagnosis, the stage of the disease is based on the level of kidney function: Stage Description GFR(mL/min/1.73 m(2)) 1 Kidney damage with normal or decreased GFR 90 2 Kidney damage with mild decrease in GFR 60-89 3 Moderate decrease in GFR 30-59 4 Severe decrease in GFR 15-29 5 Kidney failure <15 (or dialysis) 66 ---- RUN DATE: 06/14/09 [facility] NMI LIVE PAGE 1 RUN TIME: 1430 Specimen Inquiry RUN USER: INTERFACE -- Name: KVNG CASILLAS Status: REG REF Re06/10/09 Age/Sex: 68/M Unit#: [id number] Location: [address] [place] [address]. : [birth year] -- Specimen: [id number] SOUT Spec Date: 06/10/[address]: Eben Carreon MD Spec Type: SURGICAL P Received: 06/13/09-5362 Copies to: Mango richter MD SPECIMEN 1) COLON POLYP AT 20 CM. 2) RECTAL POLYP HISTORY POST-OP DIAGNOSIS: Two colon polyps removed; diverticulosis CLINICAL INFORMATION: Screening colonoscopy; immediate family member per patient had colon cancer GROSS DESCRIPTION 1) The specimen is received in formalin labelled Kvng Casillas, Colon Polyp at 20 cm., and consists of a carr, soft tissue fragment measuring 0.7 x 0.5 x 0.4 cm. Submitted entirely, one cassette. 2) The specimen is received in formalin labelled Kvng Casillas, Rectal Polyp, and consists of two, carr, soft tissue fragments measuring 0.6 x 0.3 x 0.2 cm. Submitted entirely, one cassette. DIAGNOSIS 1) Colon, 20 cm., biopsy: A. Tubular adenoma. B. No high grade dysplasia or malignancy. 2) Colon, rectum, biopsy: A. Tubular adenoma. B. No high grade dysplasia or malignancy. Signed Electronically by: HIRO HOLLOWAY MD 06/14/09 1429 -- -- DEPARTMENT OF PATHOLOGY, [address] [place] [address] [facility] Permit #[id number] Hiro Holloway M.D. Director Keturah Escobar M.D. [employer] Dir king -- 67 * SERUM LEVELS OF PSA MEASURED USING THE DEVON JENNY ACCESS HYBRITECH IMMUNOASSAY SHOULD NOT BE INTERPRETED ABSOLUTE EVIDENCE OF THE PRESENCE OR ABSENCE OF DISEASE. THE PSA VALUE SHOULD BE USED IN CONJUNCTION WITH OTHER PERTINENT CLINICAL DIAGNOSTIC PROCEDURES. A PSA value in the range of 0.1 to 0.6 ng/ml is indeterminate if being used as an indicator of recurrent or residual disease. . 68 -- REFERENCE VALUE -- 25-HYDROXY D TOTAL (D2+D3) Optimum levels in the normal population are 25-80 Test Performed by: [facility] Dpt of Lab Med and Pathology [address] [place] [address] [employer]: Gregg Rosen III, M.D. 69 PLEASE NOTE CHANGE IN REFERENCE RANGE OF 07/01/06. 70 Please note change in reference range effective 08 . 71 CHOLESTEROL INTERPRETATION: Desirable: Less than 200 MG/DL Borderline-High Risk: 200-239 MG/DL High-Risk: 240 MG/DL and over 72 HDL INTERPRETATION: Undesirable: High Risk: Less than 40 MG/DL Desirable: Low Risk: Greater than 60 MG/DL 73 LDL INTERPRETATION: Low Risk Optimal Level: LDL Less than 100 MG/DL Near or Above Optimal: LDL 100-129 MG/DL Borderline High Risk: LDL 130-159 MG/DL High Risk: LDL 160-189 MG/DL Very High Risk: LDL Greater than 189 MG/DL 74 Anion gap measurement may be of limited value in the presence of any alkalosis, especially in a combined acid base disorder. . 75 Note change in reference range as of 02/12/08. The change was based on recommendations from the [place] [employer]. 76 Please note change in reference range effective 07 . 77 A metabolite of Naproxen, O-desmethylnaproxen, has been shown to interfere with the Jendrassik-B[place]ch[place] method for measuring total bilirubin. Samples from patients who have taken Naproxen have shown spurious elevation in total bilirubin levels. 78 Because ethnic data is not always readily available, this report includes an eGFR for both -Americans and non- Americans. The National Kidney Disease Education Program (NKDEP) does not endorse the use of the MDRD equation for patients that are not between the ages of 18 and 70, are , have extremes of body size, muscle mass, or nutritional status, or are non- or non-. According to the National Kidney Foundation, irrespective of diagnosis, the stage of the disease is based on the level of kidney function: Stage Description GFR(mL/min/1.73 m(2)) 1 Kidney damage with normal or decreased GFR 90 2 Kidney damage with mild decrease in GFR 60-89 3 Moderate decrease in GFR 30-59 4 Severe decrease in GFR 15-29 5 Kidney failure <15 (or dialysis) 79 TEST LIMITATIONS: The performance of specimens from pediatric patients has not been evaluated. A positive test confirms the presence of toxins A and/or B only. A physician must use the test results in conjunction with other diagnostic procedures and the patient's clinical condition to establish a diagnosis of C.difficile-associated disease. Isolates of C. sordellii may react with this test due to immunological identitiy of the C. sordellii toxins. Two distinct groups have been identified that can harbor C. difficile asymptomatically at very high rates. Colonization rates of up to 50% and higher have been reported in infants and rates of up to 32% in cystic fibrosis patients. N^NEGATIVE BY IMMUNOASSAY^CDT 80 Anion gap measurement may be of limited value in the presence of any alkalosis, especially in a combined acid base disorder. . 81 Note change in reference range as of 02/12/08. The change was based on recommendations from the [place] [employer]. 82 Please note change in reference range effective 07 . 83 FASTING 10 HOURS 84 Anion gap measurement may be of limited value in the presence of any alkalosis, especially in a combined acid base disorder. . 85 Note change in reference range as of 02/12/08. The change was based on recommendations from the [place] [employer]. 86 Please note change in reference range effective 07 . 87 CHOLESTEROL INTERPRETATION: Desirable: Less than 200 MG/DL Borderline-High Risk: 200-239 MG/DL High-Risk: 240 MG/DL and over 88 HDL INTERPRETATION: Undesirable: High Risk: Less than 40 MG/DL Desirable: Low Risk: Greater than 60 MG/DL 89 LDL INTERPRETATION: Low Risk Optimal Level: LDL Less than 100 MG/DL Near or Above Optimal: LDL 100-129 MG/DL Borderline High Risk: LDL 130-159 MG/DL High Risk: LDL 160-189 MG/DL Very High Risk: LDL Greater than 189 MG/DL 90 Anion gap measurement may be of limited value in the presence of any alkalosis, especially in a combined acid base disorder. . 91 * SERUM LEVELS OF PSA MEASURED USING THE DEVON [employer] Text ACCESS HYBRITECH IMMUNOASSAY SHOULD NOT BE INTERPRETED ABSOLUTE EVIDENCE OF THE PRESENCE OR ABSENCE OF DISEASE. THE PSA VALUE SHOULD BE USED IN CONJUNCTION WITH OTHER PERTINENT CLINICAL DIAGNOSTIC PROCEDURES. A PSA value in the range of 0.1 to 0.6 ng/ml is indeterminate if being used as an indicator of recurrent or residual disease. . 92 COMMENTS? N 93 Anion gap measurement may be of limited value in the presence of any alkalosis, especially in a combined acid base disorder. . 94 VERBAL TO ALEKSANDAR BY RCOL at 2317 on 05/12/07. Results read back accurately. 95 VERBAL TO AMY BY SSCO at 2234 on 05/12/07. Results read back accurately. 96 The detection limit for ETHANOL is 10.0 mg/dl . Values less than 10.0 mg/dl cannot be accurately measured. . 97 CONSISTENT WITH PREVIOUS RESULTS 98 New Reference Range and Interpretation effective 03/27/02 TnI (ng/ml) INTERPRETATION <0.06 ng/ml NOT SUPPORTIVE OF DIAGNOSIS OF PA 0.06 - 0.50 ng/ml INDETERMINATE: SUGGEST SERIAL STUDIES IF CLINICALLY INDICATED. > 0.5 ng/ml CONSISTENT WITH DIAGNOSIS OF PA . Procedures Date Code Description Status 07/09/201899399 Inject/Drain Joint/Bursa Major W/O US Completed 10/15/2017 58332 EKG Tracing & Interpretation Completed 12/04/2013 68465 Repair Ruptured Musculotendinous Cuff Open, Chronic Completed 12/04/201312862 Inject Tendon Sheath Or Ligament Aponeurosis Eg Plantar Completed Fascia 01/29/2013 88366 EKG Tracing & Interpretation Completed 12/30/2009 43879 EKG Tracing & Interpretation Completed 06/10/2009 [id number] Colonoscopy Completed 06/01/2009 [id number] Colonoscopy Completed Encounters Type Date Location Provider Dx Diagnosis Office Visit 08/06/2018 Orthopedic Keyana Ba, M75.101 Uns rotatr- cuff 3:30p [facility] tear/ruptr of right shoulder, not trauma Office Visit 07/09/2018 Orthopedic Ludmila Montesinos, M75.101 Unsp rotatr- cuff 1:00p [facility] tear/ruptr of right shoulder, not trauma M25.511 Pain in right shoulder Office Visit 06/26/2018 1:40p [facility] Yelena Ferreira M75.101 Unsp rotatr-cuff Milli Infante M.D.,FACP tear/ruptr of [address] right shoulder, not trauma H90.3 Sensorineural hearing loss, bilateral Office Visit 02/18/2018 4:20p [facility] Yelena Ferreira Z00.01 Encounter for Milli nIfante M.D.,[facility] general adult medical exam w abnormal findings J44.9 Chronic obstructive pulmonary disease, unspecified F17.210 Nicotine dependence, cigarettes, uncomplicated I48.2 Chronic atrial fibrillation Office Visit 11/12/2017 2:20p [facility] Yelena Ferreira I48.0 Paroxysmal atrial Medicine Nicole Infante,FACP fibrillation M16.11 Unilateral primary osteoarthritis, right hip M54.5 Low back pain Office Visit 10/15/2017 3:40p [facility] Yelena Ferreira I48.91 Unspecified atrial Medicine Nicole Infante,FACP fibrillation I49.9 Cardiac arrhythmia, unspecified M16.11 Unilateral primary osteoarthritis, right hip Z12.2 Encntr screen for malignant neoplasm of respiratory organs F17.210 Nicotine dependence, cigarettes, uncomplicated G47.00 Insomnia, unspecified Office Visit 10/05/2015 2:50p [facility] Yelena Ferreira Z00.01 Encounter for Milli Infante M.D.,[facility] general adult [address] medical exam w abnormal findings J44.9 Chronic obstructive pulmonary disease, unspecified Z12.2 Encntr screen for malignant neoplasm of respiratory organs Z72.0 Tobacco use R07.89 Other chest pain Office Visit 07/26/2015 11:30a [facility] Yelena Ferreira G44.52 New daily Medicine Nicole Infante,FACP persistent headache (NDPH) J44.9 Chronic obstructive pulmonary disease, unspecified Office Visit 04/08/2014 [facility] [place] 840.4 Sprains & Strains 2:45p Services Of Nicole Ba Rotator Cuff C.M.A. (Capsule) Office Visit 02/01/2014 [facility] Yelena Ferreira 715.35 Osteoarthrosis 3:40p Milli Infante M.D.,FACP Localzd Not Spec Prime Or 2Ndy Pelvic & Thigh 782.3 Edema Office Visit 11/26/2013 [facility] [place] 840.4 Sprains & Strains 1:30p Services Of Nicole Ba Rotator Cuff C.M.A. (Capsule) Office Visit 08/24/2013 [facility] Yelena Ferreira 726.19 Shoulder Disorders 4:00p Milli Infante M.D.,FACP Other Spec Office Visit 07/10/2013 [facility] Internal Montserrat Azul, 577.1 Pancreatitis 4:00p Medicine N.P. Chronic 272.2 Hyperlipidemia Mixed 305.01 Alcohol Abuse Continuous Office Visit 02/27/2013 2:20p Gege Ferreira V70.0 Examination Medicine Nicole Infante,FACP General Medical Routine AT Health Care Facility 577.1 Pancreatitis Chronic 235.5 Neoplasm Uncertain Digestive Other & Unspec 799.3 Debility Unspec Office Visit 02/03/2013 11:10a Gege Ferreira 235.5 Neoplasm Medicine Nicole Infante,FACP Uncertain Digestive Other & Unspec 787.91 Diarrhea Office Visit 01/29/2013 2:00p [employer] Yelena Ferreira 789.06 Pain Abdominal Medicine Nicole Infante,FACP Epigastric V15.08 Allergy To Radiographic Dye 427.9 Cardiac Dysrhythmia Unspec V10.46 History Personal Malignant Neoplasm Prostate Office Visit 11/27/2012 [facility] Yelena Ferreira 715.95 Osteoarthrosis Unspec 2:00p Milli Infante M.D.,FACP Genlzd Or Localized Pelvic & Thigh Office Visit 11/20/2011 Gege Azul, 682.2 Cellulitis & Abscess 2:15p Medicine N.P. Trunk Office Visit 10/30/2011 Gege Azul, 110.4 Dermatophytosis Foot 1:45p Medicine N.P. 305.1 Tobacco Use Disorder Office Visit 09/24/2011 [employer] Internal Mango Ferreira 110.4 Dermatophytosis Foot 11:10a Milli Infante M.D.,FACP V06.1 Kzqbnnvnsy-Rjjiogg-Aomqhcpd Combined (DTaP) Office Visit 07/12/2011 1:15p [employer] Internal Mont[place]at Azul, 706.2 Sebaceous Cyst Medicine N.P. Office Visit 01/22/2011 3:15p DO Not Use [employer] Montserrat Carmichaelll, 311 Depressive AT [facility] N.P. Disorder Not Elsewhere Spec 305.1 Tobacco Use Disorder 272.2 Hyperlipidemia Mixed Office Visit 11/22/2010 DO Not Use [employer] Mango Ferreira V72.81 Examination 1:20p AT Mar Infante M.D.,FACP Preoperative Cardiovascular 366.04 Cataract Nuclear 272.2 Hyperlipidemia Mixed 305.01 Alcohol Abuse Continuous 305.1 Tobacco Use Disorder 311 Depressive Disorder Not Elsewhere Spec Office Visit 02/09/2010 11:40a DO Not Use [employer] Die [employer]r AT Mango Infante, 513.0 Abscess Lung Mar Rivera,FACP 041.01 Streptococcus Group A Office Visit 01/27/2010 2:40p DO Not Use [employer] AT Mango Infante, 513.0 Abscess Lung Mar Rivera,FACP 041.01 Streptococcus Group A Office Visit 01/13/2010 2:40p DO Not Use [employer] Mango Ferreira 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.,FACP Uncertain Trachea Bronchus & Lung 296.32 Depressive Disorder Major Recurrent Moderate 281.1 Vitamin B12 Deficiency Anemia Other 288.60 Leukocytosis, Unspecified Office Visit 12/30/2009 10:40a DO Not Use [employer] Die [employer] Mango Ferreira 786.09 Dyspnea & AT Mar Infante M.D.,FACP Respiratory Abnormalities Other 783.21 Loss Of Weight 296.32 Depressive Disorder Major Recurrent Moderate 272.0 Hypercholesterolemia Pure 427.89 Cardiac Dysrhythmia Other Office Visit 04/21/2009 1:20p DO Not Use [employer] And Die Rep[employer]r Mango Ferreira 272.2 Hyperlipidemia Mixed AT Mar Infante M.D.,FACP V76.51 Special Screening For Malignant Neoplasms Colon 305.01 Alcohol Abuse Continuous 275.42 Hypercalcemia 780.79 Malaise And Fatigue Other 311 Depressive Disorder Not Elsewhere Spec Office Visit 10/20/2008 DO Not Use Gege Ferreira 558.9 Gastroenteritis & 11:40a AT Mar Infatne M.D.,FACP Colitis Noninfectious Other Office Visit 04/15/2008 DO Not Use Gege Ferreira 305.01 Alcohol Abuse 3:00p AT Mar Infante M.D.,FACP Continuous 272.2 Hyperlipidemia Mixed 305.1 Tobacco Use Disorder 496 COPD Airway Obstruction Chronic Not Class Elsewhere V04.81 Need For Prophylactic Vaccination & Inoculation/Influenza v04.81 Need For Prophylactic Vaccination & Inoculation/Influenza Office Visit 07/09/2007 1:00p DO Not Use Gege Ferreira 303.93 Alcohol AT Mar Infante M.D.,FACP Dependence In Remission Other & Unspec 272.2 Hyperlipidemia Mixed 305.1 Tobacco Use Disorder 296.30 Depressive Disorder Major Recurrent Unspec Office Visit 05/27/2007 10:40a DO Not Use Gege Ferreira 303.93 Alcohol AT Mar Infante M.D.,FACP Dependence In Remission Other & Unspec 496 COPD Airway Obstruction Chronic Not Class Elsewhere 715.90 Osteoarthrosis Unspec Genlzd Or Localized Site Unspec 305.1 Tobacco Use Disorder Plan of Treatment Future Appointment(s):02/24/2019 3:00 pm - Erma Darnell MD at [facility] Internal Lopemzbd98/23/2019 - Juan David Barragan NPJ44.9 Chronic obstructive pulmonary disease, unspecifiedComments:It is important to use the ipratropium/albuterol 3-4 times daily for now.I48.2 Chronic atrial fibrillationComments:Continue to hold the metoprolol.Stop taking Diltiazem until you see the batch room technician. Continue taking the Digoxin.If ANY of your symptoms change or worsen you should call 911 or go to the ER.Referral:[facility] DiseaseFollow up:MARY: All records from recent admission to [facility] PLEASE ADD GRANDDAUGHTER TO HIPPA-call his home # first and then granddaughter if needed.K62.5 Hemorrhage of anus and rectumNew Medication: Omeprazole 20 mg - 1 by mouth once dailyComments:Your stool sample was positive for blood. I am referring you to a GI specialist for further evaluation. Start taking the Omeprazole daily until you see the motorcoach operator. Stop the xarelto today. Continue to monitor for signs of worsening bleeding.Referral: [facility].89 Other hypotensionComments:Continue to check your blood pressure and call if is is dropping lower.R79.9 Abnormal finding of blood chemistry, unspecified
[2018-10-15] MEDS ORDERED: Diltiazem IV* 5 MG/ML 5 ML VIAL (for loading dose/IV Push) (25 MG) ONE (14:43)
[2018-10-15] MEDS ORDERED: Diltiazem IV* 5 MG/ML 5 ML VIAL (for loading dose/IV Push) (25 MG) IV SLOW PU ONE (14:46)
[2018-10-15] MEDS: NS 0.9% 1000 ML** 1,000 ML IV ONE ×3 (14:52→16:10)
--- NOTE | 2018-10-15 15:14 | ED ---
GI/ HPI - HPI Summary HPI Summary: Pt is a 77 y/o M presenting to the ED with a chief GI complaint. Per the pts son, he went to his PCP yesterday, who told him to discontinue his Metoprolol, Diltiazem, and Xarelto for the day and then further talk to his printed circuit board assembly repairer about the medication changes, as he was supposed to see his printed circuit board assembly repairer today. The pts PCP called him today to report blood in his stool and told him to come up to the ED today. The pts son clarified that he experienced melena yesterday , but normal stools today. His son also states that his Hgb was 15.1 when he last got his bloodwork done, but today it was 9.7. He denies nausea, vomiting, abd pain, dizziness, and hematochezia. He came to [facility] on 09/27/18 for SO and was transferred to [place] due to lack of ICU beds. He had rapid AFib with RVR then, but no CP. Hes been home since 10/06. The pt has hx of COPD and prostate CA resulting in a prostatectomy, but no hx of CHF or bowel issues. He is unsure if he has ever had a colonoscopy. Vital signs while in room: HR 180 bpm, BP 88/68, O2 sat 96%, RR 41. Per pt's medical records, he had a cardiac stress test done on 10/11/18 that resulted in low probability, and his peak troponin in his last visit to [facility] was 0.05. The pt's last bloodwork showed Hgb of 15.7, but today it is 8.5. - History of Current Complaint Chief Complaint: EDGIBleed Stated Complaint: IM HAVING BLOOD IN STOOL PROBLEMS PER PT Hx Obtained From: Patient, Family/Spooler [employer]ber Strand - son Onset/Duration: Started Hours Ago - approx 24 hours, Resolved Timing: Intermittent, Lasting Hours Severity: Moderate Current Severity: None Pain Intensity: 0 Location of Pain: None Associated Signs and Symptoms: Positive: Melena. Negative: Dizziness, Nausea, Vomiting, Bright Red Blood w/Stool, Abdominal Pain - Allergy/Home Medications Allergies/Adverse Reactions: Allergies Allergy/AdvReac Type Severity Reaction Status Date / Time duloxetine Allergy Intermediate Altered Verified 09/27/18 20:38 Mental Status celecoxib [From Celebrex] Allergy Mild Rash Verified 09/27/18 20:38 Iodine and Iodide Containing Allergy Unknown Unknown Verified 09/27/18 20:38 Produc Reaction Details Home Medications: Home Medications Albuterol/Ipratropium NEB.LESLIE* [Duoneb (Albuterol 2.5 MG/Ipratropium 0.5 MG)] 1 neb INH Q4H PRN 10/15/18 [History Confirmed 10/15/18] Amitriptyline TAB* [Elavil TAB*] 10 mg PO BEDTIME 10/15/18 [History Confirmed ] Digoxin TAB* [Lanoxin TAB*] 0.125 mg PO DAILY 10/15/18 [History Confirmed ] Nicotine PATCH 21 MG/24 HR* 21 mg TRANSDERM DAILY 10/15/18 [History Confirmed ] Omeprazole CAP (NF) [Prilosec CAP* 20 MG] 20 mg PO DAILY 10/15/18 [History Confirmed 10/15/18] PMH/Surg Hx/FS Hx/Imm Hx Previously Healthy: Yes Endocrine/Hematology History: Denies: Hx Diabetes Cardiovascular History: Reports: Hx Hypercholesterolemia Denies: Hx Congestive Heart Failure, Hx Hypertension, Hx Pacemaker/ICD, Other Cardiovascular Problems/Disorders Respiratory History: Reports: Hx Asthma, Hx Chronic Obstructive Pulmonary Disease (COPD) GI History: Reports: Other GI Disorders - PANCREATITIS History: Reports: Other Problems/Disorders - prostrate and bladder ca Musculoskeletal History: Reports: Hx Arthritis - OSTEOARTHRITIS, Other Musculoskeletal History - osteoathrosis Sensory History: Reports: Hx Cataracts - DEEPAK, Hx Contacts or Glasses - READING GLASSES Denies: Hx Hearing Aid Opthamlomology History: Reports: Hx Cataracts - DEEPAK, Hx Contacts or Glasses - READING GLASSES Neurological History: Denies: Other Neuro Impairments/Disorders Psychiatric History: Denies: Hx Panic Disorder - Cancer History Cancer Type, Location and Year: PROSTATE CA DX 2003,BLADDER CA 2003 NO RADIATION ,NO CHEMO - Surgical History Surgery Procedure, Year, and Place: prostate 12 2003 yrs ago,. broken collarbones. RIGHT GREAT TOE, 1987, [facility]. LEFT KNEE FROM SAW INJURY, 1960S. LEFT ROTATOR CUFF REPAIR Hx Anesthesia Reactions: No - Immunization History Date of Tetanus Vaccine: utd Date of Influenza Vaccine: fall 2017 Infectious Disease History: No Infectious Disease History: Denies: Traveled Outside the [place] in Last 30 Days - Family History Known Family History: Positive: Respiratory Disease - Social History Alcohol Use: None Alcohol Amount: SOBER FOR 9 MONTHS Hx Substance Use: No Substance Use Type: Reports: None Hx Tobacco Use: Yes Smoking Status (MU): Former Smoker Type: Cigarettes Amount Used/How Often: PACK A DAY Length of Time of Smoking/Using Tobacco: py has not smoked for three days Have You Smoked in the Last Year: Yes Review of Systems Positive: Other - (+) melena, (-) hematochezia. Negative: Abdominal Pain, Vomiting, Nausea Neurological: Negative - dizziness Negative: Headache All Other Systems Reviewed And Are Negative: Yes Physical Exam - Summary Physical Exam Summary: Appearance: Well-appearing, no pain distress, well-nourished Skin: Warm, Pale, dry Head: Normal Head/Face inspection, atraumatic Eyes: Conjunctiva clear ENT: Normal inspection Neck: Supple, no nodes, no JVD Respiratory: Lungs clear, normal breath sounds, no respiratory distress Cardio: RRR, No murmur, pulses normal, brisk capillary refill Abdomen: Soft, nontender Bowel sounds: Present Musculoskeletal: Strength Intact/ROM intact, no calf tenderness, no edema. Psychological: Normal Neuro: Alert, muscle tone normal, no focal deficit Rectal: Laster Hand (Venus) present. Brown stool, non-tender exam. Sent for occult ; positive. Triage Information Reviewed: Yes Vital Signs On Initial Exam: Initial Vitals Temp Pulse Resp BP Pulse Ox 98.4 F 102 20 93/60 100 10/15/18 13:20 10/15/18 13:20 10/15/18 13:20 10/15/18 13:20 10/15/18 13:20 Vital Signs Reviewed: Yes Diagnostics - Vital Signs Vital Signs Temp Pulse Resp BP Pulse Ox 10/15/18 14:54 91 10/15/18 14:52 167 25 98/81 93 10/15/18 14:34 92 24 88/68 98 10/15/18 14:33 16 10/15/18 13:20 98.4 F 102 20 93/60 100 - Laboratory Result Diagrams: 10/15/18 14:50 10/15/18 14:50 Lab Statement: Any lab studies that have been ordered have been reviewed, and results considered in the medical decision making process. - Radiology CXR Radiology Interpretation Completed By: Radiologist Summary of Radiographic Findings: Chronic changes with cardiomegaly. No acute changes are noted. ED physician has reviewed this report. - EKG 1446 Cardiac Rate: Other Rate - Afib with RVR at 170bpm EKG Rhythm: Atrial Fibrillation - with RVR ST Segment: Normal Ectopy: None EKG Comparison: No Significant Change - from 09/27/18. comparison to remote on 10/04, pt is now in Afib w/ RVR. Summary of EKG Findings: An EKG at 1446 reveals Atrial fibrillation with RVR at 170bpm, nml IV CT, nml QTc, and nml axis. No acute changes from 09/27/18, and now in AFib with RVR compared with remote EKG from 02/08/10 Re-Evaluation - Re-Evaluation 1st re-eval Re-Evaluation Time: 15:24 Change: Unchanged Comment: The pt denies feeling badly, having a headache, abd pain, or chest pain. He also states he has shortness of breath on exertion, and numbness in his toes. When he went to see Dr. Infante 3-4 months ago, they noticed his rapid HR and immediately put him on Xarelto, but since he retired he was having issues getting a new printed circuit board assembly repairer. Second Eval Re-Evaluation Time: 16:20 Change: Unchanged Comment: The pt consents for blood, and still denies CP/SOB. Son remains with patient. Vital signs in room: HR 135bpm, BP 97/71, SaO2 97% on nasal cannula, RR 26. GIGU Course/Dx - Course Course Of Treatment: Pt is a 77 y/o M presenting to the ED with a chief GI complaint. The pt's PCP found blood in his stool and told him to go straight to the emergency room. The pt's son notes that his Diltiazem, Xarelto, and Metoprolol were stopped yesterday. The pt reports melena. He denies abd pain, N /V, dizziness, and hematochezia. Vital signs while in room: HR 180 bpm, BP 88/ 68, O2 sat 96%, RR 41. An EKG at 1446 reveals Atrial fibrillation with RVR at 170bpm, nml IV CT, nml QTc, and nml axis. No acute changes from 09/27/18, and now in AFib with RVR compared with remote EKG from 02/08/10. CXR shows chronic changes with cardiomegaly. No acute changes are noted. Per pt's medical records , he had a cardiac stress test done on 10/11/18 that resulted in low probability , and his peak troponin in his last visit to [facility] was 0.05. The pts bloodwork shows WBC at 11.3, RBC at 2.65, Hgb at 8.5, Hct at 25, MCV at 96, MCH at 32, RDW at 16, and absolute neutrophils at 8.2. Pts INR is 1.10. Chemistry shows BUN of 29, Creatinine of 1.26. BUN/creatinine ratio of 23.0, glucose of 144, BNP of 252, and total protein of 6.1. The pts troponin is 0.04. The stool occult was positive for blood. The pt's last bloodwork showed Hgb of 15.7, but today it is 8.5. Pt's DIG level is 0.7. Upon re-eval at 1620, the pt consents for blood, and still denies CP/SOB. Son remains with patient. Vital signs in room: HR 135bpm, BP 97/71, SaO2 97% on nasal cannula, RR 26. He will be admitted to the ICU with dx including AFib with RVR, hypotension, GI bleed, elevated troponin, and acute kidney injury. - Diagnoses Provider Diagnoses: Atrial fibrillation with RVR, Hypotension, GI bleed, Elevated troponin, Acute kidney injury - Critical Care Time Critical Care Time: 30-74 min Discharge - Sign-Out/Discharge Documenting (check all that apply): Patient Departure - Discharge Plan Condition: Fair Disposition: ADMITTED TO [facility] Referrals: Erma Darnell MD [Primary Care Provider] - - Attestation Statements Document Initiated by Juliannaibe: Yes Documenting Scribe: Gabi Tobar Provider For Whom Edna is Documenting (Include Credential): Dr. Isela Joseph MD. Scribe Attestation: Gabi Brar scribed for Dr. Isela Joseph MD. on 10/15/18 at 1720. Consult Consult: 1600 - Spoke with Dr. Vines who will be accepting the pt to the ICU. 1610 - Spoke with Dr. Tony of . She states she will see the pt, wants to hold the Xarelto, and give him a Protonix drip.
[2018-10-15 15:20] LABS: ABS Basophils 0 10^3/ul (0-0.2); ABS Eosinophils 0.1 10^3/ul (0-0.6); ABS Lymphocytes 2.3 10^3/ul (1.0-4.8); ABS Monocytes 0.7 10^3/ul (0-0.8); ABS Neutrophils 8.2 10^3/ul (1.5-7.7); ABS Nucleated RBC 0 10^3/ul; Eosinophil % 0.5 %; Hematocrit 25 % (36-46); Hemoglobin 8.5 g/dL (14.0-18.0); Lymphocyte % 20.7 %; Mean Corpuscular HGB Conc 34 g/dL (31-36); Mean Corpuscular Hemoglobin 32 pg (27-31); Mean Corpuscular Volume 96 fL (80-94); Mean Platelet Volume 7.5 fL (7.4-10.4); Nucleated Red Blood Cells % 0.1; Platelet Count 256 10^3/uL (150-450); Red Blood Count 2.65 10^6 /uL (4.18-5.48); Red Cell Distribution Width 16 % (10.5-15); White Blood Count 11.3 10^3/uL (3.5-10.8)
[2018-10-15] MEDS: Diltiazem IV VIAL* 125 MG in NS 0.9% 100 ML* 100 ML IVPB ONE ×2 (15:29→16:10)
[2018-10-15 15:32] LABS: ALT 34 U/L (7-52); AST 20 U/L (13-39); Activated Partial Thrombo Time 27.8 seconds (26.0-36.3); Albumin 3.5 g/dL (3.2-5.2); Albumin/Globulin Ratio 1.3 (1-3); Alkaline Phosphatase 59 U/L (34-104); Anion Gap 4 mmol/L (2-11); Blood Urea Nitrogen 29 mg/dL (6-24); CO2 Carbon Dioxide 27 mmol/L (22-32); Calcium 8.6 mg/dL (8.6-10.3); Chloride 106 mmol/L (101-111); Creatine Kinase 29 U/L (10-223); EGFR African American 67.1 (>60); EGFR Non-African American 55.5 (>60); Globulin 2.6 g/dL (2-4); Glucose 144 mg/dL (70-100); INR 1.1 (0.82-1.09); Potassium 3.9 mmol/L (3.5-5.0); Sodium 137 mmol/L (135-145); Total Protein 6.1 g/dL (6.4-8.9)
[2018-10-15 15:40] LABS: Troponin I 0.04 ng/mL (<0.04)
[2018-10-15 16:08] LABS: TSH (Thyroid Stimulating Horm) 1.89 mcIU/mL (0.34-5.60)
[2018-10-15 16:15] LABS: Digoxin 0.7 ng/ml (0.8-2.0)
[2018-10-15] MEDS ORDERED: Pantoprazole* 80 mg IN NS 80 MG/250 ML BAG IVPB ONE (16:22)
[2018-10-15] MEDS ORDERED: Acetaminophen TAB* 325 MG PO PRN (16:54)
[2018-10-15] MEDS ORDERED: Morphine 4 MG/ML VIAL (1 ml) 4 MG/ML VIAL IV PRN (16:54)
[2018-10-15] MEDS ORDERED: Albuterol/Ipratropium NEB.SOL* Albuterol 2.5 MG/Ipratropium 0.5 MG 3 ML INH PRN (16:57)
[2018-10-15] MEDS ORDERED: Digoxin IV* 0.5 MG/2 ML AMP (0.25 MG/ML) IV SLOW PU ONE (16:59)
[2018-10-15 17:02] LABS: T4, Total 8.28 mcg/dL (6.09-12.23)
[2018-10-15] MEDS ORDERED: Pantoprazole IV* 40 MG IV ONE (17:18)
[2018-10-15] MEDS ORDERED: Diltiazem IV VIAL* 125 MG in NS 0.9% 100 ML* 100 ML IV SCH (18:00)
[2018-10-15] MEDS: Pantoprazole* 80 mg IN NS 80 MG/250 ML BAG IVPB SCH (18:26)
[2018-10-15] MEDS: Nicotine PATCH 21 MG/24 HR* PATCH TRANSDERM SCH (18:34)
[2018-10-15 18:37] LABS: Troponin I 0.04 ng/mL (<0.04)
--- NOTE | 2018-10-15 19:27 | CONS ---
CC: Dr. Hua GASTROENTEROLOGY CONSULT REPORT: DATE OF CONSULT: 10/15/18 CONSULTING PROVIDERS: ER and Dr. Arin Hua. LOCATION: The patient was seen in the emergency department at 5:15 p.m. HISTORY OF PRESENT ILLNESS: Mr. Casillas is a 77-year-old gentleman with a history of COPD, prostate cancer, bladder cancer, and AFib, on Xarelto, who was admitted with anemia and melena. Mr. Casillas and his son provide majority of the history. He presented to [facility] on 09/27/18 initially for shortness of breath and was transferred to [place] due to lack of ICU bed. He was managed for AFib with RVR during that hospitalization. His hospital stay was 9 days long, and he was discharged home on 10/06/18. He has noticed for the past week that he has had black stools. He has had a bowel movement every 2 to 3 days. His stool has usually been formed to hard ball. He is color blind, so he is unable to definitively say if there has been any red blood. Last bowel movement was this morning and was brown. He was seen by his primary care provider's office yesterday and labs were drawn. He was noted at that visit to have a hemoglobin of 9.1, which is compared to 15.7 on 09/27/18. Encouraged to present to the ER today. In the ER , Mr. Casillas was noted to be in AFib with RVR with heart rates ranging as high as 180. His blood pressures have been in the 80's systolic. He had repeat labs drawn in ED demonstrating hemoglobin of 8.5. Plan is to admit to ICU. GI consulted. On interview, Mr. Casillas states that he is feeling okay. He continues to have some shortness of breath with exertion. Denies any chest pain. Denies any nausea, vomiting or heartburn. He was started on a PPI at yesterday's PCP visit , so has only taken 1 to 2 doses of this medicine. He has some lower abdominal tenderness. No prior episode of GI bleeding. He does not believe that he has ever had an upper endoscopy or a colonoscopy. Denies any NSAID use. Xarelto has been prescribed for several months now. PAST MEDICAL HISTORY: Includes COPD, AFib with RVR, anticoagulation use due to AFib, prostate cancer, status post prostatectomy; bladder cancer, status post either ablation or resection (the patient is unclear of the details), history of pancreatitis several times related to alcohol use; heavy alcohol use, now sober; osteoarthritis, hyperlipidemia. PAST SURGICAL HISTORY: Prostatectomy in 2003, knee surgery, and rotator cuff surgery. MEDICATIONS: The patient is on: 1. DuoNeb nebulizer p.r.n. 2. Amitriptyline 10 mg at bedtime. 3. Digoxin 0.125 per day. 4. Omeprazole daily. ALLERGIES: DULOXETINE causing altered mental status, CELEBREX causing rash, and IODINE and IODINE-CONTAINING PRODUCTS causing an unknown reaction. FAMILY HISTORY: No known GI or liver disease. SOCIAL HISTORY: Former smoker, quit very recently. History of heavy alcohol use, sober for a number of months. REVIEW OF SYSTEMS: 12 point ROS negative except as above. PHYSICAL EXAM: Vital Signs: Heart rate at the time of interview was in the 80s to 110s, blood pressure 87/73, respiratory rate 27, 97% on room air. General: Elderly, chronically ill-appearing gentleman, in no acute distress. Son at bedside. HEENT: Mucous membranes are moist. Cardiovascular: In AFib, tachycardic. No murmurs, rubs, or gallops. Lungs: No significant increased work of breathing noted on exam. Coarse breath sounds bilaterally. Abdomen: Soft, nondistended. Mild tenderness in the lower quadrants. Positive bowel sounds. Extremities: No edema. Skin: No jaundice or skin rash on examined area of the skin. DIAGNOSTIC STUDIES/LAB DATA: Labs reviewed. White count is 11.3, hemoglobin 8.5, hematocrit 25, platelet count 256, MCV 96. INR 1.1. BUN 29, creatinine 1.26, lactic acid 1.6. LFT panel normal. Troponin 0.04, BNP of 252. Digoxin level of 0.7, which is low. Imaging: Chest x-ray demonstrated cardiomegaly. No acute findings. IMPRESSION AND RECOMMENDATIONS: Mr. Casillas is a 77-year-old gentleman with a history of atrial fibrillation with severe episodes of rapid ventricular response, currently on Xarelto; chronic obstructive pulmonary disease; and history of prostate cancer, status post prostatectomy, who is admitted with acute hemoglobin drop and melena. Noted to be in atrial fibrillation with rapid ventricular response with borderline hypotension while in the ER. GI consulted. Mr. Casillas does appear to have had a significant hematocrit drop as compared to 09/27/18. Since this lab value was drawn, he was hospitalized for 9 days for management of A fib with RVR. I am not aware of the hemoglobin trend during that hospitalization. He has dropped a relatively small amount over past 24 hours against active severe bleeding. Additionally, the patient reports only a few episodes of formed to hard melenic stool over the past week. I would have expected to have him notice more stool output with the significant hemoglobin drop if all of it was related to gastrointestinal bleeding. Mr. Casillas should have an upper endoscopy to evaluate for upper gastrointestinal bleeding sources. As he has not had a bowel movement since this morning and does not appear to be having ongoing active bleeding, I would recommend that he have his cardiac issues managed first. He does seem to be responding to the diltiazem drip as his heart rate is quite a bit lower on my interview as compared to when he came in to the ED. Hopefully, he will have continued improvement in his heart rate and blood pressure. If he remains stable to improved, then we would plan for an upper endoscopy tomorrow. 1. Full liquid diet okay. NPO after midnight. 2. IV PPI drip. 3. Recommend holding Xarelto. 4. Continue to monitor CBC every 8 hours. Thank you very much for this consult. Please contact GI if any acute clinical change. [id number]/[facility] #: [id number] SEAN
--- NOTE | 2018-10-15 19:37 | PN ---
Progress Note - Progress Note Date of Service: 10/15/18 Note: Patient on Diltiazem drip at 2.5 mg/hr - rate controlled afib. Will d/c drip and start PO cardizem.
[2018-10-15] MEDS ORDERED: Diltiazem TAB* 30 MG PO SCH (20:00)
--- NOTE | 2018-10-15 20:48 | HP ---
CC: Primary Care Provider; Dr. Vines; Dr. Dimas; Dr. Blount HISTORY AND PHYSICAL: ADDENDUM: FAMILY HISTORY: Positive for both parents having history of smoking, mother dying at the age of 89 f or unknown reason, and father having history of obesity and smoking and dying at the age of 79. SOCIAL HISTORY: The patient stopped smoking when he was admitted to [facility] 2 weeks a go. He has history of 65-pack year smoking. He denies any current alcohol use, but he has history o f alcoholism up to 6 years ago. He denies any drug use. He lives independently and he names his son as his surrogate. The patient is and lives alone. REVIEW OF SYSTEMS: Please see history of present illness. All the remaining 12 systems were reviewe d with the patient and were otherwise negative. PHYSICAL EXAMINATION GENERAL: The patient is a pleasant 77-year-old male who is in no acute distress. Alert, awake, and o riented x3. VITAL SIGNS: Blood pressure of 88/60, heart rate of 157 and irregularly irregular, respiratory rate 17, oxygen saturation 98% on room air, temperature of 98.4. HEENT: Head: Atraumatic, normocephalic. Eyes: Pupils are equal, reactive to light and accommodati on. Oropharynx is clear. Mucosa moist. NECK: Supple. No JVD. No bruits bilaterally. RESPIRATORY: Clear to auscultation bilaterally. CARDIOVASCULAR: Irregularly irregular rhythm. No murmur. ABDOMEN: Soft, nontender. Bowel sounds are present in all 4 quadrants. EXTREMITIES: There is no edema. Pulses are +2 bilaterally. No clubbing or cyanosis. NEUROLOGIC: Speech is clear. Cranial nerves II through XII are grossly intact. Motor strength is 5/ 5 bilaterally. PSYCHIATRIC: Pleasant, cooperative with evaluation, oriented x3 with no evidence of anxiety or depre ssion. SKIN: On evaluation of the skin, no rashes noted. DIAGNOSTIC STUDIES/LAB DATA: Laboratory data showed white blood cell count of 11.3, hemoglobin of 8 .5, hematocrit of 25, MCV of 96, and platelets of 256,000. Sodium was 137, potassium 3.9, chloride 106, carbon dioxide 27, BUN 29, creatinine 1.26. Liver funct ion tests were unremarkable. Glucose of 144. Troponin of 0.04, brain natriuretic peptide was 252. TSH was 1.89. Digoxin level of 0.7. The patient's EKG showed atrial fibrillation with rapid ventricular response with heart rate of 170 b eats per minute with ST depressions in V3 and V6. Portable chest x-ray, impression: "Chronic changes with cardiomegaly. No acute changes are noted." ASSESSMENT AND PLAN: 1. The patient has atrial fibrillation with rapid ventricular response. I suspect it is a response to the patient's anemia. At this point, I discussed with Dr. Vines from Cardiology. The patient un fortunately is not a candidate for treatment with amiodarone which can lower his blood pressure and c onvert him since his anticoagulation could not be continued for the time being. At this point, it is recommended for the patient to be continued on Cardizem drip as tolerated. Treat him with a dose of IV digoxin and transfuse him for symptomatic anemia. 2. For his GI bleed which is thought likely upper in a patient with history of recent prednisone use and being placed on Xarelto. His Xarelto had been stopped 24 hours ago. At this point, the patient is going to be placed in the intensive care unit with H and H being performed every 8 hours. I disc ussed the case with Dr. Tony, who recommended Protonix drip, which is going to be continued. The patient likely is going to have an upper endoscopy in the near future. 3. The patient's mildly elevated troponin is likely due to demand ischemia. We will follow up with repeat troponin in the future. We will also check a transthoracic echocardiogram. 4. The patient's chronic obstructive pulmonary disease is not in exacerbation. His DuoNebs are going to be continued on an as needed basis. 5. The patient's code status is full. His surrogate is his son. 6. For DVT prophylaxis, anticoagulation is contraindicated and the patient is going to be placed on SCDs. TIME SPENT: Approximately 65 minutes were spent on admission of this patient, more than half that ti me was spent [id number] with the patient during the interview and physical exam. [id number]/[facility] #: [id number]
--- NOTE | 2018-10-15 20:57 | HP ---
CC: Dr. Darnell; Dr. Vines from Cardiology; Dr. Dimas; Dr. Blount* HISTORY AND PHYSICAL: DATE OF ADMISSION: 10/15/18 PRIMARY CARE PROVIDER: Dr. Darnell from [facility]. CHIEF COMPLAINT: Sent from primary care provider with history of black stools. HISTORY OF PRESENT ILLNESS: Mr. Casillas is a 77-year-old male with history of COPD, not oxygen dependent and recently diagnosed atrial fibrillation for which he was hospitalized at [facility] from 09/28/18 to 10/06/18. The patient stated that after he was discharged, he did fairly fine, but he developed black stools for the past couple of days. He went to see his primary care provider yesterday, on 10/14/18. Dr. Darnell recommended for the patient to have stool test performed and recommended stopping Xarelto. The patient had stool guaiac done and it was positive. Dr. Darnell sent the patient to the ED for evaluation. The patient stated that he had had solid bowel movements, one yesterday and one today. Both of them were black. He denies abdominal pain, but he complains of discomfort due to hunger. He denies any shortness of breath. In the ED, he was noted to have atrial fibrillation with rapid ventricular response with the heart rate in the 150s. The patient is asymptomatic from a cardiac standpoint. He denies any shortness of breath or chest pain. His systolic pressures had been in the 90s. He is going to be admitted to the intensive care unit with a diagnosis of atrial fibrillation with rapid ventricular response as well as GI bleed. PAST MEDICAL HISTORY: 1. COPD, not oxygen dependent. The patient was still smoking a week and a half ago. 2. History of anemia. 3. History of paroxysmal atrial fibrillation. 4. History of chronic pancreatitis. 5. History of prostate cancer, status post prostatectomy. 6. History of depression with major depressive episodes in the past. 7. Dyslipidemia. 8. Remote tobacco use as mentioned above. 9. History of alcoholism, in remission. PAST SURGICAL HISTORY: Includes: 1. Fractures of the right scapula. 2. Prostatectomy. 3. History of right great toe joint surgery. 4. Rotator cuff surgery in 2013 on the left. MEDICATIONS: The patient received at discharge from [facility] include: 1. Elavil 10 mg at bedtime. 2. Digoxin 125 mcg daily. 3. Diltiazem SR 60 mg twice a day. 4. Metoprolol 12.5 mg twice a day. 5. Nicotine patch 21 mg every 24 hours. 6. Prednisone taper, the patient stated that he finished the taper 3 days ago. 7. Xarelto 20 mg daily and stopped yesterday. ALLERGIES: Include CELEBREX that causes rash, CYMBALTA causes delirium, IODINATED CONTRAST, SULFA ANTIBIOTICS. FAMILY HISTORY: The patient is unsure what the family history was. The patient stated that his father was obese and had history of smoking and at the age of 79. Mother had history of smoking and at the age of 89 from unknown causes. SOCIAL HISTORY: The patient stopped smoking when he was admitted to [facility] 2 weeks ago. He has history of 65-pack year smoking. He denies any current alcohol use, but he has history of alcoholism up to 6 years ago. He denies any drug use. He lives independently and he names his son as his surrogate. The patient is and lives alone. REVIEW OF SYSTEMS: Please see history of present illness. All the remaining 12 systems were reviewed with the patient and were otherwise negative. PHYSICAL EXAMINATION GENERAL: The patient is a pleasant 77-year-old male who is in no acute distress. Alert, awake, and oriented x3. VITAL SIGNS: Blood pressure of 88/60, heart rate of 157 and irregularly irregular, respiratory rate 17, oxygen saturation 98% on room air, temperature of 98.4. HEENT: Head: Atraumatic, normocephalic. Eyes: Pupils are equal, reactive to light and accommodation. Oropharynx is clear. Mucosa moist. NECK: Supple. No JVD. No bruits bilaterally. RESPIRATORY: Clear to auscultation bilaterally. CARDIOVASCULAR: Irregularly irregular rhythm. No murmur. ABDOMEN: Soft, nontender. Bowel sounds are present in all 4 quadrants. EXTREMITIES: There is no edema. Pulses are +2 bilaterally. No clubbing or cyanosis. NEUROLOGIC: Speech is clear. Cranial nerves II through XII are grossly intact. Motor strength is 5/5 bilaterally. PSYCHIATRIC: Pleasant, cooperative with evaluation, oriented x3 with no evidence of anxiety or depression. SKIN: On evaluation of the skin, no rashes noted. DIAGNOSTIC STUDIES/LAB DATA: Laboratory data showed white blood cell count of 11.3, hemoglobin of 8.5, hematocrit of 25, MCV of 96, and platelets of 256,000. Sodium was 137, potassium 3.9, chloride 106, carbon dioxide 27, BUN 29, creatinine 1.26. Liver function tests were unremarkable. Glucose of 144. Troponin of 0.04, brain natriuretic peptide was 252. TSH was 1.89. Digoxin level of 0.7. The patient's EKG showed atrial fibrillation with rapid ventricular response with heart rate of 170 beats per minute with ST depressions in V3 and V6. Portable chest x-ray, impression: "Chronic changes with cardiomegaly. No acute changes are noted." ASSESSMENT AND PLAN: 1. The patient has atrial fibrillation with rapid ventricular response. I suspect it is a response to the patient's anemia. At this point, I discussed with Dr. Vines from Cardiology. The patient unfortunately is not a candidate for treatment with amiodarone which can lower his blood pressure and convert him since his anticoagulation could not be continued for the time being. At this point, it is recommended for the patient to be continued on Cardizem drip as tolerated. Treat him with a dose of IV digoxin and transfuse him for symptomatic anemia. 2. For his GI bleed which is thought likely upper in a patient with history of recent prednisone use and being placed on Xarelto. His Xarelto had been stopped 24 hours ago. At this point, the patient is going to be placed in the intensive care unit with H and H being performed every 8 hours. I discussed the case with Dr. Tony, who recommended Protonix drip, which is going to be continued. The patient likely is going to have an upper endoscopy in the near future. 3. The patient's mildly elevated troponin is likely due to demand ischemia. We will follow up with repeat troponin in the future. We will also check a transthoracic echocardiogram. 4. The patient's chronic obstructive pulmonary disease is not in exacerbation. His DuoNebs are going to be continued on an as needed basis. 5. The patient's code status is full. His surrogate is his son. 6. For DVT prophylaxis, anticoagulation is contraindicated and the patient is going to be placed on SCDs. TIME SPENT: Approximately 65 minutes were spent on admission of this patient, more than half that time was spent [id number] with the patient during the interview and physical exam. [id number]/[facility] #: [id number]/[facility] #: [id number] SEAN
[2018-10-15 21:23] LABS: Troponin I 0.04 ng/mL (<0.04)
[2018-10-15] MEDS: Nicotine Patch Removal NOTE PATCH OFF SCH (22:14)
[2018-10-15] MEDS: NS 0.9% 1000 ML** 1,000 ML IV SCH (22:47)
[2018-10-15 23:43] LABS: Hematocrit 27 % (36-46)
[2018-10-16 00:37] LABS: Urine Appearance Clear; Urine Bilirubin Negative (Negative); Urine Blood Negative (Negative); Urine Color Straw; Urine Glucose Negative (Negative); Urine Ketones Negative (Negative); Urine Nitrite Negative (Negative); Urine Protein Negative (Negative); Urine Specific Gravity 1.006 (1.010-1.030); Urine Urobilinogen Negative (Negative)
[2018-10-16] MEDS: Amitriptyline TAB* 10 MG PO SCH ×2 (00:52→22:24)
[2018-10-16] MEDS: Pantoprazole* 80 mg IN NS 80 MG/250 ML BAG IVPB SCH ×2 (03:05→16:33)
[2018-10-16] MEDS: Nicotine Patch Removal NOTE PATCH OFF SCH ×2 (04:19→22:25)
[2018-10-16] MEDS ORDERED: Diltiazem TAB* 30 MG PO SCH (06:00)
[2018-10-16 07:30] LABS: Calcium 7.7 mg/dL (8.6-10.3); EGFR African American 77.7 (>60); EGFR Non-African American 64.2 (>60); Potassium 4.4 mmol/L (3.5-5.0)
[2018-10-16] MEDS ORDERED: Metoprolol Tartrate TAB* 25 MG PO SCH (09:00)
[2018-10-16 09:02] LABS: ABS Basophils 0 10^3/ul (0-0.2); ABS Eosinophils 0.1 10^3/ul (0-0.6); ABS Lymphocytes 1.5 10^3/ul (1.0-4.8); ABS Monocytes 0.4 10^3/ul (0-0.8); ABS Neutrophils 6.7 10^3/ul (1.5-7.7); ABS Nucleated RBC 0 10^3/ul; Eosinophil % 0.9 %; Hematocrit 27 % (36-46); Hemoglobin 9.2 g/dL (14.0-18.0); Lymphocyte % 17.7 %; Mean Corpuscular HGB Conc 34 g/dL (31-36); Mean Corpuscular Hemoglobin 32 pg (27-31); Mean Corpuscular Volume 95 fL (80-94); Mean Platelet Volume 7.5 fL (7.4-10.4); Nucleated Red Blood Cells % 0.1; Platelet Count 180 10^3/uL (150-450); Red Blood Count 2.84 10^6 /uL (4.18-5.48); Red Cell Distribution Width 15 % (10.5-15); White Blood Count 8.8 10^3/uL (3.5-10.8)
[2018-10-16] MEDS: NS 0.9% 1000 ML** 1,000 ML IV SCH ×2 (09:23→22:58)
[2018-10-16] MEDS: Nicotine PATCH 21 MG/24 HR* PATCH TRANSDERM SCH (09:27)
--- NOTE | 2018-10-16 10:15 | PN ---
Subjective Date of Service: 10/16/18 Interval History: Pt feels hungry. Last melanotic BM yesterday. Denies abd pain. Noted sinus pauses up to 3.5 sec early AM, asymptomatic Objective Active Medications: Acetaminophen (Tylenol Tab*) 650 mg PO Q4H PRN PRN Reason: FEVER/PAIN Albuterol/Ipratropium (Duoneb (Albuterol 2.5 Mg/Ipratropium 0.5 Mg)) 1 neb INH Q4H PRN PRN Reason: SHORTNESS OF BREATH Amitriptyline HCl (Elavil Tab*) 10 mg PO BEDTIME [facility] Last Admin: 10/16/18 00:52 Dose: 10 mg Digoxin (Lanoxin Tab*) 0.125 mg PO DAILY@1700 [facility] Pantoprazole Sodium (Protonix Iv Bag*) 80 mg in 250 mls @ 25 mls/hr IVPB Q10H [facility] Last Admin: 10/16/18 03:05 Dose: 25 mls/hr Sodium Chloride (Ns 0.9% 1000 Ml) 1,000 mls @ 100 mls/hr IV PER RATE [facility] Last Admin: 10/16/18 09:23 Dose: 100 mls/hr Morphine Sulfate (Morphine 4 Mg/Ml Vial (1 Ml)) 1 mg IV Q4H PRN PRN Reason: PAIN - MILD Nicotine (Nicotine Patch 21 Mg/24 Hr*) 1 patch TRANSDERM DAILY [facility] Last Admin: 10/16/18 09:27 Dose: 1 patch Pharmacy Profile Note (Nicotine Patch Removal Note*) 1 note PATCH OFF 2100 [facility] Last Admin: 10/16/18 04:19 Dose: Not Given Vital Signs - 8 hr 10/16/18 10/16/18 03:01 03:10 Temperature 97.8 F Pulse Rate 80 Respiratory 20 20 Rate Blood Pressure 97/62 (mmHg) O2 Sat by Pulse 94 Oximetry Oxygen Devices in Use Now: Nasal Cannula Appearance: 77 yo M in nAD, aAOx3 Eyes: No Scleral Icterus, PERRLA Ears/Nose/Mouth/Throat: NL Teeth, Lips, Gums, Mucous Membranes Moist Neck: NL Appearance and Movements; NL JVP, Trachea Midline Respiratory: Symmetrical Chest Expansion and Respiratory Effort, Clear to Auscultation, - - rhonchi at LLL clear with cough Cardiovascular: NL Sounds; No Murmurs; No JVD, - - irregular Abdominal: NL Sounds; No Tenderness; No Distention Lymphatic: No Cervical Adenopathy Extremities: No Edema, No Clubbing, Cyanosis Skin: No Rash or Ulcers, No Nodules or Sclerosis Neurological: Alert and Oriented x 3, NL Muscle Strength and Tone Result Diagrams: 10/16/18 06:46 10/16/18 06:46 Microbiology and Other Data: Microbiology 10/15/18 19:26 Nasal Screen MRSA (PCR) - Final Nasal Mrsa Not Detected 10/15/18 14:45 Stool Occult Blood (SUNDEEP) - Final Stool Assess/Plan/Problems-Billing Assessment: 77 yo M with h/o recent dx of A. fib placed on Xarelto on 10/06/18 at [facility]. Also with recent COPD exacerbation and prednsione tx - Patient Problems (1) GI bleed Comment: with acute hemorrhagic anemia S/p 2 U PRBC transfused at admission Cont Protonx gtt GI to EGD today Suspect upper GI as source (2) Atrial fibrillation with rapid ventricular response Comment: Off Cardizem gt due to sinus pauses this AM Still in A. fib cont digoxin daily Cardiology consulted Echo pending Mild troponin elevation due to demand ischemia (3) Hypotension Comment: pt has had low SBP's in 90's ever since his dx of a. fib before the bleeding occured (4) ELEN (acute kidney injury) Comment: due to hypoperfusion, resolved (5) DVT prophylaxis Comment: SCD's Status and Disposition: inpatient
[2018-10-16 10:40] LABS: Digoxin 2.3 ng/ml (0.8-2.0)
--- NOTE | 2018-10-16 13:20 | CONS ---
CONSULTATION REPORT: DATE OF CONSULT: 10/16/18 PRIMARY COSMETOLOGIST: The patient was supposed to establish care with Dr. Howard Armas. PRIMARY CARE PHYSICIAN: Juan David Barragan NP ATTENDING PHYSICIAN: Dr. Blount, Cardiology. CHIEF COMPLAINT: Lightheadedness, melena. HISTORY OF PRESENT ILLNESS: This is a pleasant 77-year-old male patient with a notable history of AFib, on Xarelto, Cardizem, digoxin, and Lopressor therapy. The patient states that he was diagnosed with AFib 2 to 3 years ago by former PCP, Dr. Infante, who had remotely prescribed Xarelto therapy. He adds that he was recently hospitalized on 09/27/18 at [facility] due to COPD exacerbation with AFib, RVR. I did review his discharge documents that he actually has with him. It appears that the patient was instructed to stop taking Motrin. He was discharged home on Xarelto 20 mg a day, prednisone taper , transdermal nicotine patch, Lopressor 12.5 mg p.o. b.i.d., diltiazem 60 mg p.o. b.i.d., digoxin 125 mcg daily, amitriptyline, and DuoNeb therapy. The patient states that since being discharged, he has been experiencing positional lightheadedness and black stools. He actually saw Juan David Barragan NP, yesterday in the office. Apparently, his systolic pressure was in the 80s; however, upon further review of discharge documents from [place], it looks like he was discharged home with a systolic blood pressure of 96. The patient had worsening anemia, hemoglobin was 9.7 in the setting of complaints of melena and positional lightheadedness, thus was instructed to present to [facility]. While being evaluated in the emergency department, troponin was minimally elevated at 0.04. Upon further review, the patient's troponin has been 0.04 dating back to . He denies having stress test or angiogram done at [place]. He cannot recall the last stress test that he has done. The patient was transfused with 2 units of packed red blood cell. Hemoglobin this morning is now 9.2. He denies syncope. Reports occasional palpitations. Has chronic shortness of breath due to underlying advanced COPD. Denies chest pain or exertional symptoms. Denies edema, orthopnea. He is currently resting in bed with no complaints. The patient was experiencing AFib, rates 50s to 60s with pauses less than 3 seconds , thus it appears that digoxin and Cardizem therapy was stopped yesterday evening. Actually when I was examining the patient, he had a 4-second pause on telemetry, which I did pronounce and placed in his chart. He was not symptomatic. Please note that when the patient present to the emergency department on 09/27/18, he was in AFib, rapid ventricular rate 189 beats per minute and on 10/15/18, he was in AFib at 170 beats per minute. 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 2. Prostate cancer. 3. AFib. 4. COPD. 5. Bladder cancer. 6. Hyperlipidemia. PAST SURGICAL HISTORY: Includes: 1. Prostatectomy. 2. Left shoulder decompression and rotator cuff repair. HOME MEDICATIONS: As of yesterday, he is on: 1. Digoxin 0.125 mg daily. 2. Transdermal nicotine patch. 3. Amitriptyline 10 mg a day. 4. DuoNeb treatments. 5. Prilosec. ALLERGIES: Listed include: 1. DULOXETINE, which causes altered mental status. 2. CELECOXIB, which causes rash. 3. IODINE, unknown reaction. FAMILY HISTORY: Noncontributory. SOCIAL HISTORY: The patient lives at home alone. His son, who lives locally, is involved in his care. 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 He denies drug use. He is a former tobacco user. He reports smoking 1 pack per day for 65 years and quit as of 12/10. REVIEW OF SYSTEMS: All systems have been reviewed and otherwise negative except as above mentioned in the HPI. PHYSICAL EXAM: Current vital signs: Temperature is 97.8, pulse 80, respirations 20, oxygenation 94% on 2 L nasal cannula, blood pressure 97/62. General: The patient was lying in bed upon entering room, easily got up and sat on the edge of bed to have conversation with me. He is no apparent distress. He is pleasant and cooperative with exam. HEENT: Head is atraumatic , normocephalic. Oral mucosa is moist. Nasal cannula in bilateral nares. Neck : Supple. Trachea midline. No JVD. No carotid bruits. Cardiac: Normal S1, S2. Irregular rate and rhythm. No gallop, rub, or murmur noted. Lungs: Auscultated posteriorly. There are diffuse rales noted throughout upon inspiration and expiration. No retractions noted. /GI: Abdomen is soft, nontender, nondistended. Normoactive bowel sounds x4. Extremities: No pedal edema, no clubbing, no cyanosis. Peripheral Vascular: A 2+ brachial and dorsalis pedis pulse palpated bilaterally and symmetrically. DIAGNOSTIC STUDIES/LAB DATA: Blood work: White count 8.8, hemoglobin 9.2, hematocrit 27, platelets 180. Sodium 141, potassium 4.4, chloride 114, carbon dioxide 23, BUN 20, creatinine 1.1, glucose 88. Troponin has been 0.04 since . TFTs are normal. BNP was 258. EKG from 10/15/18 was reviewed. The patient was in AFib, RVR, rate [address]-segment depression. Echocardiogram is pending. Chest x-ray from 10/15/18, per Radiology report: Chronic changes with cardiomegaly. No acute changes noted. ASSESSMENT AND PLAN: 1. Longstanding history of atrial fibrillation. The patient states that since age 19, he has been told he has had an irregular heartbeat. Apparently, he was formerly diagnosed with atrial fibrillation approximately 2 to 3 years ago and has been on Xarelto therapy, which was initiated by former PCP, Dr. Infante. CHADS -VASc is 3. Formerly tolerated Xarelto with no prior history of gastrointestinal bleed according to the patient. For the past 12 months, he reports taking Motrin 400 mg a day for chronic headache in combination with Xarelto therapy. He has a tendency to have atrial fibrillation with rapid ventricular response. In fact, he was 189 beats per minute on 09/27/18 and 170 beats per minute on 10/15/18. AV taty agents have been placed on hold due to sinus pauses less than 3 seconds; however, when I was examining the patient, he actually had a 4-second pause and he was not symptomatic. Digoxin level is 2.3 today. Again, digoxin, Cardizem, and metoprolol are placed on hold at this current time. The patient was seen by GI. Once clinically stable, we would recommend anticoagulation given annual risk of cerebrovascular accident is 3.2% , perhaps in the future a better alternative would be Eliquis therapy. We will follow closely and make further recommendations depending upon how the patient does in regards to conduction abnormalities off of AV taty agents and digoxin therapy. 2. Symptomatic gastrointestinal bleed. GI following. The patient received 2 units of packed red blood cells. Hemoglobin today is 9.2. The patient had been on Xarelto therapy in combination with Motrin 400 mg a day. Please note that Motrin was discontinued upon discharge from [place] on 10/06/18. Symptomatology of melena started the week following this according to the patient. 3. Troponinemia. The patient denies chest pain. He had lateral ST-segment depression noted on ECG 10/15/18; however, given he was in atrial fibrillation with rapid ventricular response and acute blood loss anemia, this is likely demand related. He does have risk factors for coronary artery disease including tobacco abuse, hyperlipidemia. He would likely benefit from eventual ischemic evaluation. We will follow. Await echocardiogram to rule out wall motion abnormality. 4. History of chronic obstructive pulmonary disease with recent exacerbation, 09/27/18. Hospitalist following. The patient has rales on exam, but he states his breathing is at baseline. 5. Disposition: Pending course. The patient is DNR. We will follow closely. Continue to hold Lopressor, Cardizem, and digoxin therapy. Continue to monitor on telemetry. Await echocardiogram. I personally discussed the plan of care with Dr. Blount, who agrees with the above assessment and plan. LEXII ASTUDILLO NP [id number]/[facility] #: [id number] SEAN
[2018-10-16] MEDS ORDERED: Midazolam* 1 MG/ML 10 ML VIAL (10 MG) ONE (13:26)
--- NOTE | 2018-10-16 14:35 | ECHO ---
*[facility]* [place] [address] Fax #: [phone] Transthoracic Echocardiogram Patient: Vinny, Height: 69 in / Ronnie Moya 175.3 cm : 1940 Weight: 164.7 lb / Study Date: 10/16/2018 74.8 kg Age: 77 BP: 97 / 62 Gender: M BMI/BSA: 24.4 kg/m^2 HR: 57 bpm / 1.9 m^2 *Corrective Therapist: * Carlee Rodney *Referring Physician: * Arin Hua *Reading Physician: Lynda Daily Indications: Abnormal EKG. History: COPD, ETOH. Atrial fibrillation. Risk factors: Current tobacco use. Dyslipidemia. Conclusions Summary: 1. Impressions: No previous study was available for comparison. 2. Left ventricle: The cavity size is normal. Wall thickness is mildly increased. The estimated ejection fraction is 55-60%. Left ventricular diastolic function parameters are indeterminate. 3. Left atrium: The atrium is moderately dilated. 4. Right atrium: The atrium is mildly to moderately dilated. 5. Mitral valve: There is mild regurgitation. 6. Tricuspid valve: There is mild-moderate regurgitation. 7. Aorta: The aorta is mildly dilated. 8. Pericardium, extracardiac: There is no significant pericardial effusion. Study data: Transthoracic echocardiogram. Procedure: Transthoracic echocardiography was performed. Image quality was fair. The study was technically limited due to COPD. Complete 2D, spectral Doppler, and color flow Doppler. Location: Bedside. Patient status: Inpatient. Patient room number: 441 02. Rhythm: Atrial fibrillation. Findings Left ventricle: The cavity size is normal. Wall thickness is mildly increased. The estimated ejection fraction is 55-60%. Wall motion is normal; there are no regional wall motion abnormalities. Left ventricular diastolic function parameters are indeterminate. Right ventricle: The cavity size is normal. Wall thickness is mildly increased. Systolic function is normal. Left atrium: The atrium is moderately dilated. Right atrium: The atrium is mildly to moderately dilated. Mitral valve: The annulus is mildly calcified. The leaflets are mildly thickened. There is no evidence of stenosis. There is mild regurgitation. The peak diastolic gradient is 3.9 mm Hg. Aortic valve: Not well visualized. The leaflets are mildly thickened. There is no evidence of stenosis. There is no significant regurgitation. The ratio of LVOT to aortic valve peak velocity is 0.49. The valve area by the peak velocity method is 1.55 cm^2. The valve area index by the peak velocity method is 0.82 cm^2/m^2. The peak systolic gradient is 10.0 mm Hg. Tricuspid valve: The leaflets are normal thickness. There is no evidence of stenosis. There is mild-moderate regurgitation. Pulmonic valve: Not well visualized. There is no significant regurgitation. The peak systolic gradient is 1.0 mm Hg. Aorta: The aorta is mildly dilated. The aortic arch is not well visualized. Pericardium: There is no significant pericardial effusion. Pulmonary arteries: Not well visualized. Systemic veins: Inferior vena cava: The vessel is dilated. The respirophasic diameter changes are blunted (< 50%). Measurements Left ventricle Value Ref Right atrium continued Value Ref ANN MARIE, LAX 4.4 cm 4.2 - 5.8 ML dim, ES, A4C 4.3 cm 2.6 - 4.4 ESD, LAX 3.9 cm 2.5 - 4.0 Estimated RAP 8 mm Hg --------- FS, LAX (L) 11 % 25 - 43 PW, ED, LAX (H) 1.1 cm 0.6 - 1.0 Aortic valve Value Ref Mass/ht 113.55 g/m --------- Shun diam, ED 2.2 cm --------- E', lat shun, TDI 10.6 cm/sec >=10.0 Peak v, S 1.59 m/sec --- ------ E/e', lat shun, 9 --------- Peak grad, S 10.0 mm Hg ------ --- TDI CHRISTIN, Vmax 1.55 cm^2 --------- E', med shun, TDI 10.1 cm/sec >=7.0 E/e', med shun, 10 --------- Mitral valve Value Ref TDI Peak E 0.99 m/sec --------- E', avg, TDI 10.4 cm/sec --------- Peak A 0.02 m/sec ------ --- E/e', avg, TDI 10 <=14 Decel time 139 ms --- ------ Peak grad, D 3.9 mm Hg --------- LVOT Value Ref Peak E/A ratio 54.9 --------- Diam, S 2.00 cm --------- Peak adrián, S 0.78 m/sec --------- Pulmonic valve Value Ref Peak v, S 0.55 m/sec --------- Ventricular septum Value Ref Peak grad, S 1.0 mm Hg --------- IVS, ED (H) 1.3 cm 0.6 - 1.0 Tricuspid valve Value Ref Right ventricle Value Ref Peak RV-RA grad, S 23 mm Hg --------- ANN MARIE, LAX 2.2 cm --------- Max TR adrián 2.43 m/sec --------- ANN MARIE minor ax, 2.5 cm 1.9 - 3.5 A4C mid Aortic root Value Ref Pressure, S 31 mm Hg --------- Root diam 3.8 cm <4.1 Left atrium Value Ref Pulmonary artery Value Ref AP dim, ES 3.20 cm 3.00 - Pressure, S 30.0 mm Hg --------- 4.00 ML dim, A4C 5.2 cm --------- Inferior vena cava Value Ref SI dim, A4C 5.2 cm --------- Diam 3.1 cm --------- Vol/bsa, ES, 1-p (H) 46 ml/m^2 12 - 37 A4C Right atrium Value Ref SI dim, ES (H) 6.0 cm 3.4 - 5.3 Legend: (L) and (H) john values outside specified reference range. Prepared and electronically signed by Lynda Blount 10/16/2018 14:34
--- NOTE | 2018-10-16 14:36 | PN ---
Progress Note - Progress Note Date of Service: 10/16/18 Note: GI Brief EGD Note E: Barretts C1M3, not sampled due to melena, but appeared smooth, 3cm Hiatal hernia. G: mild atrophic gastritis bx D: clean based duodenal ulcer, base of bulb going into c-loop. No fresh or old blood. Rec: Full liquid today PPI gtt x 72 hours total, then change to PO BID for 3 months time Likely NSAID in etiology if hgb stable today, can resume cardiac diet on 10/17/18 AM Will need repeat EGD in 3 months time to sample the alexander's Manjit Charltonrdan DO 10/16/18 [id number]
[2018-10-16] MEDS ORDERED: Digoxin TAB* 0.125 MG PO SCH (17:00)
[2018-10-16] MEDS: Diltiazem TAB* 60 MG PO SCH ×2 (17:45→23:12)
--- NOTE | 2018-10-16 21:59 | PRO ---
CC: Dr. Erma Darnell; Primary Care Physician* EGD REPORT: DATE OF PROCEDURE: 10/16/18 INDICATION FOR PROCEDURE: Melena. PROCEDURE PERFORMED: Complete esophagogastroduodenoscopy with biopsies. MEDICATIONS GIVEN: Include 5 mg IV midazolam. DESCRIPTION OF PROCEDURE: After the EGD procedure including the risks, benefits , and alternatives with the risks not limited to perforation, surgery, missed lesions, and/or were explained to the patient, written informed consent was obtained, IV medication was given, and a bite block was placed between the teeth. The adult Olympus gastroscope was then introduced into the patient's oropharynx, into the tubular esophagus. 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 This was not sampled secondary to his blood loss anemia ; however, the Lockwood's was smooth in appearance. The scope was then advanced through the lower esophageal sphincter into the stomach. A 3 cm hiatal hernia was appreciated on retroflexion. There was mild atrophic gastritis, especially in the antrum. This was biopsied for CLOtesting. The scope was then advanced through a widely pylorus into the duodenal bulb, C loop, and distal duodenum. In the base of the bulb, there was a clean-based ulcer at 0.7 cm without fresh or old blood. No further ulcerations were noted in the area. The scope was then removed from the patient. He tolerated procedure well. He returned to the recovery room in stable condition. IMPRESSION: 1. Complete esophagogastroduodenoscopy with biopsies. 2. Duodenal ulcer, clean based, duodenal bulb, 0.7 cm. 3. 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 4. Atrophic gastritis, biopsied. RECOMMENDATIONS: PPI drip for 72 hours total. At that point, he can be switched to 40 mg p.o. pantoprazole b.i.d. for a total of [address] him on a full liquid diet tonight. If he is tolerating that well, he can have a cardiac diet on 10/17/18. He should have a repeat EGD in 3 months' time to assess his Lockwood's and take samples at that point in 4 quadrant fashion. This was not done today secondary to the acute blood loss anemia. [id number]/[facility] #: [id number] [facility]
[2018-10-17] MEDS: Pantoprazole* 80 mg IN NS 80 MG/250 ML BAG IVPB SCH ×4 (02:50→17:49)
[2018-10-17 06:03] LABS: ABS Basophils 0 10^3/ul (0-0.2); ABS Eosinophils 0.1 10^3/ul (0-0.6); ABS Lymphocytes 1.1 10^3/ul (1.0-4.8); ABS Monocytes 0.5 10^3/ul (0-0.8); ABS Neutrophils 5.4 10^3/ul (1.5-7.7); ABS Nucleated RBC 0 10^3/ul; Eosinophil % 1.4 %; Hematocrit 27 % (36-46); Hemoglobin 9.3 g/dL (14.0-18.0); Lymphocyte % 15.8 %; Mean Corpuscular HGB Conc 34 g/dL (31-36); Mean Corpuscular Hemoglobin 32 pg (27-31); Mean Corpuscular Volume 94 fL (80-94); Mean Platelet Volume 7.3 fL (7.4-10.4); Nucleated Red Blood Cells % 0.1; Platelet Count 171 10^3/uL (150-450); Red Blood Count 2.89 10^6 /uL (4.18-5.48); Red Cell Distribution Width 15 % (10.5-15); White Blood Count 7.1 10^3/uL (3.5-10.8)
[2018-10-17 06:23] LABS: BUN/Creatinine Ratio 11.9 (8-20); EGFR African American 79.4 (>60); EGFR Non-African American 65.6 (>60); Potassium 4.1 mmol/L (3.5-5.0)
[2018-10-17] MEDS: Diltiazem TAB* 60 MG PO SCH ×3 (06:27→17:48)
[2018-10-17] MEDS: Nicotine PATCH 21 MG/24 HR* PATCH TRANSDERM SCH (08:35)
--- NOTE | 2018-10-17 09:47 | PN ---
Subjective Date of Service: 10/17/18 Interval History: Pt feels well. C/o occasional cough, 02 sat on RA 91 % when sitting. 4 beats of v.tach this AM, otherwise-sinus pauses resolved, cont A. fib No melena or BRBPR noted in the past 24H Objective Active Medications: Acetaminophen (Tylenol Tab*) 650 mg PO Q4H PRN PRN Reason: FEVER/PAIN Albuterol/Ipratropium (Duoneb (Albuterol 2.5 Mg/Ipratropium 0.5 Mg)) 1 neb INH Q4H PRN PRN Reason: SHORTNESS OF BREATH Amitriptyline HCl (Elavil Tab*) 10 mg PO BEDTIME [facility] Last Admin: 10/16/18 22:24 Dose: 10 mg Diltiazem HCl (Cardizem Tab*) 60 mg PO Q6HR [facility] Last Admin: 10/17/18 06:27 Dose: Not Given Pantoprazole Sodium (Protonix Iv Bag*) 80 mg in 250 mls @ 25 mls/hr IVPB Q10H [facility] Last Admin: 10/17/18 08:35 Dose: Not Given Morphine Sulfate (Morphine 4 Mg/Ml Vial (1 Ml)) 1 mg IV Q4H PRN PRN Reason: PAIN - MILD Nicotine (Nicotine Patch 21 Mg/24 Hr*) 1 patch TRANSDERM DAILY [facility] Last Admin: 10/17/18 08:35 Dose: 1 patch Pharmacy Profile Note (Nicotine Patch Removal Note*) 1 note PATCH OFF 2100 [facility] Last Admin: 10/16/18 22:25 Dose: 1 note Vital Signs - 8 hr 10/17/18 10/17/18 10/17/18 03:31 04:00 06:27 Temperature 98.2 F Pulse Rate 70 95 Respiratory 22 22 Rate Blood Pressure 100/60 94/53 (mmHg) O2 Sat by Pulse 100 Oximetry 10/17/18 10/17/18 07:16 07:30 Temperature 97.6 F Pulse Rate 46 Respiratory 16 16 Rate Blood Pressure 112/68 (mmHg) O2 Sat by Pulse 100 Oximetry Oxygen Devices in Use Now: Nasal Cannula Appearance: 77 yo M in nAD, aAOx3 Eyes: No Scleral Icterus, PERRLA Ears/Nose/Mouth/Throat: NL Teeth, Lips, Gums, Mucous Membranes Moist Neck: NL Appearance and Movements; NL JVP, Trachea Midline Respiratory: Symmetrical Chest Expansion and Respiratory Effort, - - rhonchi at LLL clear with cough Cardiovascular: NL Sounds; No Murmurs; No JVD, - - irregular Abdominal: NL Sounds; No Tenderness; No Distention Lymphatic: No Cervical Adenopathy Extremities: No Edema Skin: No Rash or Ulcers, No Nodules or Sclerosis Neurological: Alert and Oriented x 3, NL Muscle Strength and Tone Result Diagrams: 10/17/18 05:36 10/17/18 05:36 Microbiology and Other Data: Microbiology 10/15/18 19:26 Nasal Screen MRSA (PCR) - Final Nasal Mrsa Not Detected 10/15/18 14:45 Stool Occult Blood (SUNDEEP) - Final Stool Assess/Plan/Problems-Billing Assessment: 77 yo M with h/o recent dx of A. fib placed on Xarelto on 10/06/18 at [facility]. Also with recent COPD exacerbation and prednsione tx - Patient Problems (1) GI bleed Comment: with acute hemorrhagic anemia S/p 2 U PRBC transfused at admission Cont Protonix gtt till tomorrow AM(total of 72 Hr) EGD on 10/16/18 showed duodenal ulcer (2) Atrial fibrillation with rapid ventricular response Comment: Off Cardizem gt due to sinus pauses , then noted to have digoxin level of 2.3 Still in A. fib holding digoxin -will recheck level today, poss restart it tomorrow if cardiology agrees restarted Cardizem IR today Cardiology consulted Echo shows EF 55% and mild-mod MR Mild troponin elevation due to demand ischemia (3) Hypotension Comment: pt has had low SBP's in 90's ever since his dx of a. fib before the bleeding occured (4) ELEN (acute kidney injury) Comment: due to hypoperfusion, resolved (5) COPD (chronic obstructive pulmonary disease) Comment: not in exacerbation, mild hypoxemia-suspect atelectasis, start incentive spirometry (6) DVT prophylaxis Comment: SCD's Status and Disposition: inpatient
[2018-10-17 10:08] LABS: Digoxin 1.5 ng/ml (0.8-2.0)
[2018-10-17] MEDS ORDERED: Digoxin TAB* 0.125 MG PO SCH (17:00)
[2018-10-17] MEDS: Nicotine Patch Removal NOTE PATCH OFF SCH (21:34)
[2018-10-17] MEDS: Amitriptyline TAB* 10 MG PO SCH (21:35)
[2018-10-18] MEDS ORDERED: Pantoprazole* 80 mg IN NS 80 MG/250 ML BAG IVPB SCH ×2
[2018-10-18] MEDS ORDERED: Diltiazem CD CAP* 180 MG PO SCH (06:00)
[2018-10-18 06:19] LABS: ABS Basophils 0 10^3/ul (0-0.2); ABS Eosinophils 0.1 10^3/ul (0-0.6); ABS Lymphocytes 1.1 10^3/ul (1.0-4.8); ABS Monocytes 0.5 10^3/ul (0-0.8); ABS Neutrophils 5.5 10^3/ul (1.5-7.7); ABS Nucleated RBC 0 10^3/ul; Eosinophil % 1.5 %; Hematocrit 26 % (36-46); Hemoglobin 8.7 g/dL (14.0-18.0); Lymphocyte % 14.9 %; Mean Corpuscular HGB Conc 34 g/dL (31-36); Mean Corpuscular Hemoglobin 32 pg (27-31); Mean Corpuscular Volume 95 fL (80-94); Mean Platelet Volume 7.3 fL (7.4-10.4); Nucleated Red Blood Cells % 0.1; Platelet Count 153 10^3/uL (150-450); Red Blood Count 2.72 10^6 /uL (4.18-5.48); Red Cell Distribution Width 16 % (10.5-15); White Blood Count 7.3 10^3/uL (3.5-10.8)
[2018-10-18 06:22] LABS: Calcium 7.9 mg/dL (8.6-10.3); Magnesium 1.8 mg/dL (1.9-2.7)
[2018-10-18 06:28] LABS: BUN/Creatinine Ratio 13.2 (8-20); EGFR African American 75.4 (>60); EGFR Non-African American 62.3 (>60)
[2018-10-18] MEDS ORDERED: Magnesium Sulfate 2 GM IV* 2 GM/50 ML BAG IVPB ONE (08:26)
[2018-10-18] MEDS ORDERED: Pantoprazole TAB * 40 MG TAB PO SCH (09:00)
[2018-10-18] MEDS: Nicotine PATCH 21 MG/24 HR* PATCH TRANSDERM SCH (09:05)
[2018-10-18 12:57] VITALS: BP 122/67
--- NOTE | 2018-10-18 16:22 | DS ---
CC: Dr. Darnell; Dr. Vines, Cardiology; Dr. Blount, Cardiology; Dr. Dimas; Dr. Tony; Dr. Zimmerman DISCHARGE SUMMARY: DATE OF ADMISSION: 10/15/18 DATE OF DISCHARGE: 10/18/18 PRIMARY CARE PROVIDER: Dr. Darnell. Condition at discharge: stable DISCHARGE DIAGNOSES: 1. 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 2. Atrial fibrillation with rapid ventricular response. SECONDARY DIAGNOSES: 1. Chronic obstructive pulmonary disease, previously not oxygen dependent, currently the patient is going to be discharged on oxygen at 6 L when ambulating. The patient actually does not require oxygen when stationary. 2. History of anemia. 3. History of paroxysmal atrial fibrillation in the past. 4. History of pancreatitis in the past, likely alcoholic. 5. History of prostate cancer, status post prostatectomy. 6. History of depression with major depressive episodes in the past. 7. Dyslipidemia. 8. Remote tobacco use. 9. Remote alcoholism. 10. History of fractures of the right scapula. 11. Right great toe surgery in the past. 12. Rotator cuff surgery on the left in the past. MEDICATIONS AT DISCHARGE: Include: 1. Nebulizer DuoNeb every 4 hours p.r.n. 2. Elavil 10 mg at bedtime. 3. Digoxin 125 mcg daily. 4. Nicotine patch 21 mg per day transdermally daily. 5. Cardizem CD 180 mg daily. 6. Omeprazole 20 mg b.i.d. Medications discontinued included: 1. Xarelto. 2. Metoprolol. The patient is going to be using oxygen when ambulating on 6 L. LABORATORY DATA AND STUDIES PERFORMED DURING THE HOSPITAL STAY: Included on , sodium of 138, potassium of 4.0, chloride 109, carbon dioxide 25, BUN 15 , creatinine 1.14. On 10/18/18, white blood cell count of 7.3, hemoglobin of 8.7, hematocrit of 26 , MCV of 95, and platelets of 153. Transthoracic echocardiogram obtained on 10/16/18, impression: "Left ventricular cavity size is normal. Wall thickness is mildly increased. Estimated EF 55% to 60%. Left ventricular diastolic function parameters are indeterminate. The left atrium is moderately dilated as well as the right atrium was moderately dilated. Mitral valve with mild regurgitation. Tricuspid valve with mild to moderate regurgitation. Aorta mildly dilated and no significant pericardial effusion." PROCEDURES PERFORMED DURING THE HOSPITAL STAY: Included Dr. Zimmerman, upper endoscopy obtained on 10/16/18, impression: "Complete EGD with biopsies. Duodenal ulcer, clean based, duodenal bulb of 0.7 cm. 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 Atrophic gastritis, biopsied." The biopsies are pending at the time of dictation. CONSULTATIONS DURING THE HOSPITAL STAY: Included Dr. Tony and Dr. Zimmerman from Gastroenterology and Dr. Blount from Cardiology. HOSPITALIZATION COURSE: Ronnie Casillas is a 77-year-old male, who was just restarted during his last hospital stay at [facility] within the past couple of weeks on Xarelto for anticoagulation for his paroxysmal atrial fibrillation as well as placed on prednisone taper for COPD exacerbation. He was brought into our hospital on 10/15/18 with complaints of melanic stools. He also was noted to be hypotensive with systolic pressures in the 80s at admission and in atrial fibrillation with rapid ventricular response. He was transfused 2 units of packed red blood cells during his hospital stay with stabilization of his blood pressure, although the patient is known to have systolic pressures in the 90s. Due to his atrial fibrillation with rapid ventricular response and hypotension at admission, he was transiently placed in the intensive care unit. Once his blood pressure and his heart rate normalized, he was transferred to telemetry monitored unit. The patient had an EGD performed during the hospital stay, which showed duodenal ulcer. At that point, he continued Protonix drip for a total of 72 hours. The bleeding did not appear to recur. In regard to his atrial fibrillation, he was initially loaded with a dose of digoxin. Later on, his digoxin level was mildly elevated at 2.3 and he developed sinus pauses. Due to that, his Cardizem and metoprolol needed to be held together with digoxin. Slowly, his Cardizem was restarted with good results. At the end of his hospitalization, his digoxin was also restarted. His metoprolol, he did not tolerate due to borderline blood pressures. By the time of discharge, his heart rate had been controlled in the 70s. The patient appears to be in ectopic atrial rhythm with frequent PACs. He also may intermittently be in AFib/flutter. At discharge, the patient is recommended to follow up with his primary care provider in approximately 4 to 7 days. The patient is to follow up with Dr. Blount in approximately 1 to [address] Zimmerman for a repeat endoscopy in approximately 2 to 3 months. Biopsy results from the patient's ulcer and possibility of Lockwood's esophagus are pending at the time of dictation. Please note that the patient was hypoxemic at discharge with ambulation. His oxygen saturations were low enough to require 6 L of oxygen with ambulation. He was actually fine when he was not walking and his oxygen saturations on room air when sitting down were 91%. He is going to be set up with oxygen at 6 L when ambulating. It is suspected that his anemia caused him to be more hypoxemic in conjunction with his COPD. It likely will recover once he normalizes his anemia. PHYSICAL EXAMINATION: At the time of discharge, blood pressure of 132/67, heart rate of 73 and irregularly irregular, respiratory rate 19, oxygen saturation 99% on 2 L of oxygen via nasal cannula, temperature 98.2. General: The patient is a very pleasant 77-year-old male, who is in no acute distress. Alert, awake, and oriented x3. HEENT: Head: Atraumatic, normocephalic. Eyes : Pupils are equal, reactive to light and accommodation. Oropharynx is clear. Mucosa moist. Neck: Supple. No JVD. No bruits bilaterally. Cardiovascular : Irregularly irregular rhythm. No murmur. Respiratory: Coarse rhonchi at left lung base that clear with cough. Abdomen: Soft, nontender. Bowel sounds are present in all 4 quadrants. Extremities: There is no edema. Pulses are +2 bilaterally. No clubbing or cyanosis. Neuro Evaluation: Speech is clear. Cranial nerves II through XII are grossly intact. Motor strength is 5/5 bilaterally. Please note that this is a short summary of the patient's hospitalization. Please refer to further medical records for details. [id number]/[facility] #: [id number] [facility]
== END 2018-10-18 14:52 | disposition home or self-care (01) | DRG 378 ==
LOC: ED 13:14 → ICU 16:51 → MEDTELE 10-16 02:55
PROVIDERS: ADMIT Internal Medicine; ATTEND Internal Medicine
PROC: 30233N1 Transfusion of Nonautologous Red Blood Cells into Peripheral Vein, Percutaneous Approach (ICD-10-PCS; 2018-10-15)
PROC: 0DB98ZX Excision of Duodenum, Via Natural or Artificial Opening Endoscopic, Diagnostic (ICD-10-PCS; principal; 2018-10-16)
PROC: 0DB68ZX Excision of Stomach, Via Natural or Artificial Opening Endoscopic, Diagnostic (ICD-10-PCS; 2018-10-16)
DX: K26.4 Chronic or unspecified duodenal ulcer with hemorrhage (principal); D62 Acute posthemorrhagic anemia; N17.9 Acute kidney failure, unspecified; K22.70 Barrett's esophagus without dysplasia; E78.00 Pure hypercholesterolemia, unspecified; J44.9 Chronic obstructive pulmonary disease, unspecified; M19.90 Unspecified osteoarthritis, unspecified site; E78.5 Hyperlipidemia, unspecified; R74.8 Abnormal levels of other serum enzymes; Z66 Do not resuscitate; R00.1 Bradycardia, unspecified; I49.5 Sick sinus syndrome; R09.02 Hypoxemia; K29.41 Chronic atrophic gastritis with bleeding; I08.1 Rheumatic disorders of both mitral and tricuspid valves; I77.819 Aortic ectasia, unspecified site; I95.9 Hypotension, unspecified; F32.9 Major depressive disorder, single episode, unspecified; K44.9 Diaphragmatic hernia without obstruction or gangrene; I48.0 Paroxysmal atrial fibrillation; H26.9 Unspecified cataract; Z82.5 Family history of asthma and other chronic lower respiratory diseases; Z88.8 Allergy status to other drugs, medicaments and biological substances; Z90.79 Acquired absence of other genital organ(s); Z85.46 Personal history of malignant neoplasm of prostate; Z91.041 Radiographic dye allergy status; Z87.891 Personal history of nicotine dependence; Z85.51 Personal history of malignant neoplasm of bladder
CPT/HCPCS: 36415; 71045; 80048; 80053; 80162; 81003; 82272; 82550; 82553; 83605; 83735; 83880; 84436; 84443; 84484; 85014; 85018; 85025; 85610; 85730; 86850; 86900; 86901; 86922; 87077; 87641; 93005; 93306; 99156; 99157; 99285; A9270-GY; J1160; J2250; J3475; P9016; P9040